=== PATIENT | male | born 1965 | race Two or more races ===

== ENCOUNTER → 2022-11-15 12:59 | Outpatient (BNVA) | payer MEDICARE, MEDICAID, SELFPAY | PROVIDERS: PCP Internal Medicine; Visit Provider Nurse Practitioner Family | DX: M47.26 Other spondylosis with radiculopathy, lumbar region (principal); M51.36 Other intervertebral disc degeneration, lumbar region; G89.0 Central pain syndrome; Z94.0 Kidney transplant status | CPT/HCPCS: 99212 ==

== ENCOUNTER → 2022-12-03 10:05 | Outpatient (BNVA) | payer MEDICARE, MEDICAID, SELFPAY | PROVIDERS: PCP Internal Medicine; Visit Provider Nurse Practitioner Family | DX: G89.0 Central pain syndrome (principal); M47.26 Other spondylosis with radiculopathy, lumbar region; M51.36 Other intervertebral disc degeneration, lumbar region; Z94.0 Kidney transplant status | CPT/HCPCS: Q3014 ==

== ENCOUNTER → 2023-02-06 08:51 | Outpatient (BNVA) | payer MEDICARE, MEDICAID, SELFPAY | PROVIDERS: PCP Internal Medicine; Visit Provider Nurse Practitioner Family ==

== ENCOUNTER → 2023-08-26 23:59 | Outpatient (BNV) | payer MEDICARE, MEDICAID, SELFPAY | PROVIDERS: PCP Internal Medicine; Visit Provider Internal Medicine | DX: I12.0 Hypertensive chronic kidney disease with stage 5 chronic kidney disease or end stage renal disease (principal); N18.6 End stage renal disease; Z09 Encounter for follow-up examination after completed treatment for conditions other than malignant neoplasm; R52 Pain, unspecified | CPT/HCPCS: G0179 ==

== ENCOUNTER 2023-09-02 12:39 | Outpatient (AMB) | payer MEDICARE, MEDICAID, SELFPAY ==
--- NOTE | 2023-09-02 12:48 | MHC.PC.OV ---
Vital Signs 09/02/23 12:49 Height 5 ft 3 in Weight 178 lb BMI 31.5 BP 124/76 Blood Pressure Location Lt brachial Position Sitting Pulse 75 Pulse Source Pulse Oximeter Pulse Oximetry (%) 99 Oxygen Delivery Method Room Air Intake Visit Reasons: 6 month Follow- needs PHQ9 Intake Note: Pt is here today for 6 months follow up visit. Allergies No Known Allergies [No Known Allergies*] Allergy (Verified 09/02/23 12:54) Tobacco use date assessed: 09/02/23 Dental Screening Dental Screen Date: 09/02/23 Did you have a dental visit in the last 12 months?: Yes Did you have a dental problem in the last 6 months where you did not have access to dental care?: No Was dental information given to patient?: Patient has dentist HPI 6 month Follow- needs PHQ9 HPI Details Patient is 58-year-old gentleman came in today for his regular 6 month follow-up appointment Patient is a kidney transplant recipient and is doing very well His nephrology is Dr. Fagan Patient is taking no medication from this office However I see that he has gained lot of weight, his BMI is now 31.5 We talked about the ideal body weight and BMI Patient have chronic lower back pain, and is doing very well with Lyrica 25 mg also prescribed through Nephrology office He will return in 6 months for physical exam [facility] Medical History Thalamic pain syndrome Lumbar degenerative disc disease Lumbar back pain with radiculopathy affecting left lower extremity Hypertension, essential Depression Chronic kidney failure Surgical History History of esophagogastroduodenoscopy (EGD) H/O colonoscopy Kidney transplant recipient History of right inguinal hernia repair History of strabismus surgery Status post biopsy of kidney Family History Father No problems noted. Mother No problems noted. Sister HTN (hypertension) CVD (cardiovascular disease) Myocardial infarction Cancer Maternal Grandmother Cancer Maternal Grandfather No problems noted. Paternal Grandfather Unknown family medical history Paternal Grandmother Unknown family medical history Sister No problems noted. Brother No problems noted. Brother Substance use disorder Son No problems noted. Daughter No problems noted. Social History Housing: Apartment Alcohol intake: never Patient Tobacco Use Status: Former Tobacco user Quit Date: 2020 Cigarettes Per Day: 3 Years Smoked: 12 years e-Cigarette/Vaping Use: Never Used Current occupational status: retired and disabled Cognitive needs: No Hearing needs: No Vision needs: No Questionnaire PHQ-9 Over the last 2 weeks, how often have you been bothered by any of the following problems? 1. Little interest or pleasure in doing things: several days 2. Feeling down, depressed, or hopeless: not at all 3. Trouble falling or staying asleep, or sleeping too much: more than half the days 4. Feeling tired or having little energy: more than half the days 5. Poor appetite or overeating: several days 6. Feeling bad about yourself - or that you are a failure or have let yourself or your family down: not at all 7. Trouble concentrating on things, such as reading the newspaper or watching television: not at all 8. Moving or speaking so slowly that other people could have noticed. Or the opposite - being so fidgety or restless that you have been moving around a lot more than usual: several days 9. Thoughts that you would be better off or of hurting yourself in some way: not at all Total score: 7 Depression Screening Interpretation: Negative Depression Screening Done: Yes 34852 - PHQ-9 Billing: Yes Source: Developed by Drs. Jean-Paul Amato, Phuong Mckeon, Rafy Connell and colleagues, with an educational bobby from [employer]. Thrive Questionnaire Date Thrive assessed: 09/02/23 I am a: Patient What is your living situation today?: I have a steady place to live Within the past 12 months, did the food you bought not last and you didn't have the money to get more?: Never true Within the past 12 months, did you worry whether your food would run out before you got money to buy more?: Never true Do you have trouble paying for medicines?: No Do you have trouble getting transportation to medical appointments?: No Do you have trouble paying your heating and electricity bill?: No Do you have trouble taking care of your child, family member or friend?: No Do you have trouble with day-to-day activities such as bathing, preparing meals, shopping, managing finances, etc.?: No Are you currently unemployed and looking for a job?: No Are you interested in more education?: No Please select the resources that you would like help with: None Currently or been in a relationship where the following occur: no concerns reported AUDIT C Alcohol Use Questionnaire (AUDIT-C) 1. How often do you have a drink containing alcohol?: Never 3. How often do you have six or more drinks on one occasion?: Never Total Score: 0 TEA-7 AMB Questionnaire TEA-7 Date TEA - 7 assessed: 09/02/23 Feeling nervous, anxious, or on edge: 0 = Not at all Not being able to stop or control worryin = Not at all Worrying too much about different things: 0 = Not at all Trouble relaxin = Not at all Being so restless that it is hard to sit still: 0 = Not at all Becoming easily annoyed or irritable: 0 = Not at all Feeling afraid as if something awful might happen: 0 = Not at all Total TEA-7 score (0-4 normal; 5-9 mild; 10-14 moderate; 15-21 severe): 0 Source: Developed by Drs. Jean-Paul Amato, Phuong Mckeon, Rafy Connell and colleagues, with an educational bobby from [employer]. Review of Systems Const Denies chills and Denies fever(s) ENT Denies epistaxis and Denies nasal discharge Card Denies chest pain Resp Denies chest congestion, Denies cough and Denies hemoptysis GI Denies diarrhea and Denies nausea Skin/Breast Denies rash Neuro Reports no additional complaints Psych Reports no additional complaints Endo Reports no additional complaints Physical exam (Primary Care) Vital Signs: Last Vital Signs Pulse 75 09/02/23 12:49 BP 124/76 09/02/23 12:49 Pulse Ox 99 09/02/23 12:49 Oxygen Delivery Method Room Air 09/02/23 12:49 BMI result Body Mass Index 31.5 Tobacco/Smoking Status: Tobacco use Status Tobacco use date assessed 09/02/23 09/02/23 12:58 Patient Tobacco Use Status Former Tobacco user 09/02/23 12:49 Tobacco use type 02/28/23 12:15 e-Cigarette/Vaping Use Never Used 09/02/23 12:49 PHQ-9: PHQ-9 Score PHQ-9: Total score 7 09/02/23 12:59 Depression Screening Interpretation: Negative Thrive Assessment: Date of Thrive Assessment Date Thrive assessed 09/02/23 09/02/23 12:59 Currently or been in a relationship where the following occur: no concerns reported Const General: cooperative, comfortable and no acute distress Orientation/consciousness: patient oriented x3 HENMT Head: Yes normocephalic Eyes General: appearance normal, both eyes and all related structures Neck Neck: Yes supple Resp Effort & Inspection: normal respiratory effort, no cough and no stridor Cardio Rhythm: regular rhythm Heart sounds: S1 normal heart sound present and S2 normal heart sound present Skin General skin exam: turgor normal Neuro General: patient oriented x3, tone normal and moves all extremities Extrem Right lower extremity: no edema Left lower extremity: no edema Assessment and Plan Assessment & Plan (1) Obesity due to excess calories: Code(s): E66.09 - Other obesity due to excess calories Qualifiers: Obesity classification: adult class 1 (BMI 30 - 34.9) Serious obesity comorbidity presence: with serious comorbidity Body mass index: BMI 31.0-31.9 Qualified Code(s): E66.09 - Other obesity due to excess calories; Z68.31 - Body mass index [BMI] 31.0-31.9, adult (2) Kidney transplant recipient: Code(s): Z94.0 - Kidney transplant status (3) Lumbar back pain with radiculopathy affecting left lower extremity: Code(s): M54.16 - Radiculopathy, lumbar region (4) Hypertension, essential: Code(s): I10 - Essential (primary) hypertension Plan Patient is 58-year-old gentleman came in today for his regular 6 month follow-up appointment Patient is a kidney transplant recipient and is doing very well His nephrology is Dr. Fagan Patient is taking no medication from this office However I see that he has gained lot of weight, his BMI is now 31.5 We talked about the ideal body weight and BMI Patient have chronic lower back pain, and is doing very well with Lyrica 25 mg also prescribed through Nephrology office He will return in 6 months for physical exam Coding Level of Care Code Est Pt Level 3 (84087) Diagnoses Class 1 obesity due to excess calories with serious comorbidity and body mass index (BMI) of 31.0 to 31.9 in adult E66.09; Z68.31 Obesity classification: adult class 1 (BMI 30 - 34.9) Serious obesity comorbidity presence: with serious comorbidity Body mass index: BMI 31.0-31.9 Kidney transplant recipient Z94.0 Lumbar back pain with radiculopathy affecting left lower extremity M54.16 Hypertension, essential I10
[2023-09-02 12:49] VITALS: BP 124/76; PULSE 75; O2SAT 99; BMI 31.5
== END 2023-09-02 16:00 | disposition home or self-care (01) ==
LOC: HO.HMGC 12:39
PROVIDERS: PCP Internal Medicine; Visit Provider Internal Medicine
DX: M54.16 Radiculopathy, lumbar region (principal); I10 Essential (primary) hypertension; E66.09 Other obesity due to excess calories; Z94.0 Kidney transplant status; Z68.31 Body mass index [BMI] 31.0-31.9, adult
CPT/HCPCS: 99213

== ENCOUNTER 2024-04-23 13:28 | Outpatient (AMB) | payer MEDICARE, MEDICAID, SELFPAY ==
--- NOTE | 2024-04-23 13:40 | A.OFFPC_ITS ---
Vital Signs 3 04/23/24 13:43 Height 5 ft 3 in Weight 160 lb BMI 28.3 BP 122/80 Blood Pressure Location Rt brachial Position Sitting Pulse 78 Pulse Source Pulse Oximeter Pulse Oximetry (%) 98 Oxygen Delivery Method Room Air Intake Visit Reasons: 6month Follow up Allergies No Known Allergies [No Known Allergies*] Allergy (Verified 04/23/24 13:43) Medication List - Last Reconciled 04/23/24 by Oumou Liriano MD amlodipine 10 mg PO DAILY atorvastatin 80 mg PO DAILY 90 days calcifediol ER (Rayaldee) 30 mcg PO DAILY cane As directed carvedilol 25 mg PO BID cinacalcet 30 mg PO DAILY docusate sodium 100 mg PO TID PRN ezetimibe 10 mg PO DAILY lisinopril 40 mg PO DAILY pregabalin 25 mg PO DAILY Shower Chair As directed sodium bicarbonate 650 mg PO BID tacrolimus XR (Envarsus XR) 1 mg PO DAILY torsemide 10 mg PO DAILY Tobacco use date assessed: 04/23/24 Dental Screening Dental Screen Date: 04/23/24 Did you have a dental visit in the last 12 months?: Yes Did you have a dental problem in the last 6 months where you did not have access to dental care?: No Was dental information given to patient?: Patient has dentist HPI 6month Follow up 2 HPI0 Details Patient is 58-year-old gentleman came in today for his six-month follow-up appointment Patient is due for colonoscopy, referral placed He is a kidney transplant recipient, and would like to transfer his care to [facility] He is also due for labs order placed He is taking atorvastatin for lipid control from this office Patient have a large shunt in his left arm that was placed for dialysis before the kidney transplant He will discuss with the Nephrology further because he want that removed, patient feels that it is getting bigger He is taking amlodipine 10 mg , lisinopril 40 mg and carvedilol 25 mg for hypertension. Other medications reviewed Only medication from PCP office is atorvastatin Follow-up 6 months [facility] Medical History Thalamic pain syndrome Lumbar degenerative disc disease Lumbar back pain with radiculopathy affecting left lower extremity Hypertension, essential Depression Chronic kidney failure Surgical History History of esophagogastroduodenoscopy (EGD) H/O colonoscopy Kidney transplant recipient History of right inguinal hernia repair History of strabismus surgery Status post biopsy of kidney Family History Father No problems noted. Mother No problems noted. Sister HTN (hypertension) CVD (cardiovascular disease) Myocardial infarction Cancer Maternal Grandmother Cancer Maternal Grandfather No problems noted. Paternal Grandfather Unknown family medical history Paternal Grandmother Unknown family medical history Sister No problems noted. Brother No problems noted. Brother Substance use disorder Son No problems noted. Daughter No problems noted. Social History Housing: Apartment Alcohol intake: never Patient Tobacco Use Status: Former Tobacco user Cigarettes Per Day: 3 Years Smoked: 12 years e-Cigarette/Vaping Use: Never Used Current occupational status: retired and disabled Cognitive needs: No Hearing needs: No Vision needs: No Questionnaire Thrive Questionnaire Date Thrive assessed: 09/02/23 TEA-7 AMB Questionnaire TEA-7 Date TEA - 7 assessed: 09/02/23 Source: Developed by Drs. Jean-Paul Amato, Phuong Mckeon, Rafy Connell and colleagues, with an educational bobby from [employer]. Review of Systems Const Denies chills and Denies fever(s) ENT Denies epistaxis and Denies nasal discharge Card Denies chest pain Resp Denies chest congestion, Denies cough and Denies hemoptysis GI Denies diarrhea and Denies nausea Skin/Breast Denies rash Neuro Reports no additional complaints Psych Reports no additional complaints Endo Reports no additional complaints Physical exam (Primary Care) Vital Signs: Last Vital Signs Pulse 78 04/23/24 13:43 BP 122/80 04/23/24 13:43 Pulse Ox 98 04/23/24 13:43 Oxygen Delivery Method Room Air 04/23/24 13:43 BMI result Body Mass Index 28.3 Tobacco/Smoking Status: Tobacco use Status Tobacco use date assessed 04/23/24 04/23/24 13:47 Patient Tobacco Use Status Former Tobacco user 04/23/24 13:40 Tobacco use type 02/28/23 12:15 e-Cigarette/Vaping Use Never Used 04/23/24 13:40 Thrive Assessment: Date of Thrive Assessment Date Thrive assessed 09/02/23 04/23/24 13:40 Const General: cooperative, comfortable and no acute distress Orientation/consciousness: patient oriented x3 [facility] Head: Yes normocephalic Eyes General: appearance normal, both eyes and all related structures Neck Neck: Yes supple Resp Effort & Inspection: normal respiratory effort, no cough and no stridor Cardio Rhythm: regular rhythm Heart sounds: S1 normal heart sound present and S2 normal heart sound present Skin General skin exam: turgor normal Neuro General: patient oriented x3, tone normal and moves all extremities Extrem Elbow/forearm/wrist images: 2 1. Large shunt Right lower extremity: no edema Left lower extremity: no edema Assessment and Plan Assessment & Plan (1) Lipid disorder: Code(s): E78.9 - Disorder of lipoprotein metabolism, unspecified (2) Hypertension, essential: Code(s): I10 - Essential (primary) hypertension (3) Lumbar degenerative disc disease: Code(s): M51.36 - Other intervertebral disc degeneration, lumbar region (4) Membranous glomerulonephritis: Code(s): N05.2 - Unspecified nephritic syndrome with diffuse membranous glomerulonephritis (5) Kidney transplant recipient: Code(s): Z94.0 - Kidney transplant status (6) Colon cancer screening: Code(s): Z12.11 - Encounter for screening for malignant neoplasm of colon (7) Lumbar spondylosis: Code(s): M47.816 - Spondylosis without myelopathy or radiculopathy, lumbar region Plan Patient is 58-year-old gentleman came in today for his six-month follow-up appointment Patient is due for colonoscopy, referral placed He is a kidney transplant recipient, and would like to transfer his care to [facility] He is also due for labs order placed He is taking atorvastatin for lipid control from this office Patient have a large shunt in his left arm that was placed for dialysis before the kidney transplant He will discuss with the Nephrology further because he want that removed, patient feels that it is getting bigger He is taking amlodipine 10 mg , lisinopril 40 mg and carvedilol 25 mg for hypertension. Other medications reviewed Only medication from PCP office is atorvastatin Follow-up 6 months Orders: Orders 2 Comprehensive Met. Panel Today E78.9 - Disorder of lipoprotein metabolism, unspecified TSH reflex Free T4 Today E78.9 - Disorder of lipoprotein metabolism, unspecified, I10 - Essential (primary) hypertension, M51.36 - Other intervertebral disc degeneration, lumbar region Vitamin D 25-OH (D2 and D3) Today E78.9 - Disorder of lipoprotein metabolism, unspecified, I10 - Essential (primary) hypertension, M51.36 - Other intervertebral disc degeneration, lumbar region Complete Blood Count Auto Diff Today E78.9 - Disorder of lipoprotein metabolism, unspecified, I10 - Essential (primary) hypertension, M51.36 - Other intervertebral disc degeneration, lumbar region LDL Cholesterol Direct Today E78.9 - Disorder of lipoprotein metabolism, unspecified, I10 - Essential (primary) hypertension, M51.36 - Other intervertebral disc degeneration, lumbar region Referrals 2 Gastroenterology Referral Z12.11 - Encounter for screening for malignant neoplasm of colon Nephrology Referral N05.2 - Unspecified nephritic syndrome with diffuse membranous glomerulonephritis, Z94.0 - Kidney transplant status Coding Level of Care Code Est Pt Level 4 (26106) Complex EM visit Add On G2211 Diagnoses Lipid disorder E78.9 Hypertension, essential I10 Lumbar degenerative disc disease M51.36 Membranous glomerulonephritis N05.2 Kidney transplant recipient Z94.0 Colon cancer screening Z12.11 Lumbar spondylosis M47.816
[2024-04-23 13:43] VITALS: BP 122/80; PULSE 78; O2SAT 98; BMI 28.3
== END 2024-04-23 14:07 | disposition home or self-care (01) ==
PROVIDERS: PCP Internal Medicine; Visit Provider Internal Medicine
DX: E78.9 Disorder of lipoprotein metabolism, unspecified (principal); I10 Essential (primary) hypertension; M51.36 Other intervertebral disc degeneration, lumbar region; N05.2 Unspecified nephritic syndrome with diffuse membranous glomerulonephritis; Z12.11 Encounter for screening for malignant neoplasm of colon; M47.816 Spondylosis without myelopathy or radiculopathy, lumbar region; Z94.0 Kidney transplant status
CPT/HCPCS: 99214; G2211

== ENCOUNTER 2024-04-23 14:12 | Outpatient (REF) | payer MEDICARE, MEDICAID, SELFPAY ==
[2024-04-23 16:08] LABS: MANUAL DIFF FLAG NO
[2024-04-23 16:12] LABS: Basophils Absolute Auto 0.1 X10*3/uL (0.0-0.2); Basophils Percent Auto 0.6 % (0-2); Eosinophils Absolute Auto 0.3 X10*3/uL (0.0-0.4); Eosinophils Percent Auto 2.8 % (0-4); Hematocrit 41.3 % (42.0-52.0); Hemoglobin 13.6 g/dl (14.0-18.0); Imm Gran Abs Auto 0.03 X10*3/uL (0.00-0.03); Imm Gran Pct Auto 0.3 % (0.0-0.4); Lymphocytes Percent Auto 10.8 % (20-40); Mean Corpuscular HGB Conc 32.9 g/dl (31.0-36.0); Mean Corpuscular Volume 91.2 fL (80.0-98.0); Mean Platelet Volume 11.3 fL (9.4-12.4); Monocytes Absolute Auto 1.1 X10*3/uL (0.1-1.2); Monocytes Percent Auto 12.7 % (2-11); Neutrophils Absolute Auto 6.6 x10*3/uL (2.0-8.3); Neutrophils Percent Auto 72.8 % (45-73); Platelet Count 247 X10*3/uL (160-400); Red Blood Count 4.53 X10*6/uL (4.60-5.80)
[2024-04-23 16:45] LABS: Alanine Aminotransferase 25 U/L (0-40); Albumin Level 4.4 g/dL (3.5-5.0); Alkaline Phosphatase 105 U/L (39-117); Anion Gap 13 (12-20); Aspartate Amino Transferase 21 U/L (5-37); Bilirubin Total 0.5 mg/dL (0.0-1.0); Blood Urea Nitrogen 31 mg/dL (9-16); Calcium 9.8 mg/dL (8.4-10.2); Carbon Dioxide 21 mmol/L (22-29); Chloride 114 mmol/L (96-108); Estimated Glomerular Filt Rate 46; Glucose Random 113 mg/dL (60-115); Potassium 5.4 mmol/L (3.3-5.1); Sodium 143 mmol/L (135-145); Total Protein 7.7 g/dL (6.5-8.0)
[2024-04-23 17:03] LABS: TSH reflex Free T4 0.95 uIU/mL (0.32-4.0)
[2024-04-25 00:18] LABS: LDL Cholesterol Direct 37 mg/dL (<100)
[2024-04-28 11:58] LABS: Vitamin D 25-OH, D2 70 ng/mL; Vitamin D 25-OH, D3 19 ng/mL; Vitamin D 25-OH, Total 89 ng/mL (30-100)
== END 2024-04-23 14:13 | disposition home or self-care (01) ==
LOC: HO.HMGCLDS 14:12
PROVIDERS: PCP Internal Medicine; Visit Provider Internal Medicine
DX: E78.9 Disorder of lipoprotein metabolism, unspecified (principal); I10 Essential (primary) hypertension; M51.36 Other intervertebral disc degeneration, lumbar region
CPT/HCPCS: 36415; 80053; 82306; 83721; 84443; 85025

== ENCOUNTER 2024-05-19 09:55 | Outpatient (AMB) | payer MEDICARE, MEDICAID, SELFPAY ==
[2024-05-19 09:59] VITALS: BP 124/68; PULSE 63; O2SAT 97; BMI 28.9
--- NOTE | 2024-05-19 09:59 | HO.NEPHOV_ITS ---
Vital Signs 05/19/24 09:59 Height 5 ft 3 in Weight 163 lb BMI 28.9 BP 124/68 Blood Pressure Location Lt brachial Position Sitting Pulse 63 Pulse Source Pulse Oximeter Pulse Oximetry (%) 97 Oxygen Delivery Method Room Air Intake Visit Reasons: Kidney transplant status/ Conf Church Organist Required: No Accompanied by: Self / Same As Patient Allergies lactose Allergy (Unknown, Verified 05/19/24 10:03) Unknown Medication List - Last Reconciled 05/19/24 by Jason Goldstein MD acetaminophen 500 mg PO Q6H PRN amlodipine 10 mg PO DAILY cane As directed carvedilol 25 mg PO BID empagliflozin (Jardiance) 10 mg PO DAILY lisinopril 40 mg PO DAILY Shower Chair As directed tacrolimus XR (Envarsus XR) 1 mg PO DAILY tacrolimus XR (Envarsus XR) 2 mg PO DAILY HPI Comments Details: . Rodney is well known to me. 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 He underwent kidney transplant 2 years ago. Date of transplant 06/06/2021. 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 Current modality renal transplant Campath induction Maintenance with tacrolimus. Patient creatinine 1.5. No history of rejection. He was previously seen by Dr. Fagan for transplant follow-up. Since her exit from [facility] he wants to switch care to us. He is concerned about taking multiple medications. Today he has no specific complaints. [facility] Medical History Thalamic pain syndrome Lumbar degenerative disc disease Lumbar back pain with radiculopathy affecting left lower extremity Hypertension, essential Depression Chronic kidney failure Surgical History History of esophagogastroduodenoscopy (EGD) H/O colonoscopy Kidney transplant recipient History of right inguinal hernia repair History of strabismus surgery Status post biopsy of kidney Family History Father No problems noted. Mother No problems noted. Sister HTN (hypertension) CVD (cardiovascular disease) Myocardial infarction Cancer Maternal Grandmother Cancer Maternal Grandfather No problems noted. Paternal Grandfather Unknown family medical history Paternal Grandmother Unknown family medical history Sister No problems noted. Brother No problems noted. Brother Substance use disorder Son No problems noted. Daughter No problems noted. Social History Housing: Apartment Alcohol intake: never Patient Tobacco Use Status: Former Tobacco user Cigarettes Per Day: 3 Years Smoked: 12 years e-Cigarette/Vaping Use: Never Used Current occupational status: retired and disabled Cognitive needs: No Hearing needs: No Vision needs: No Review of Systems Const Denies fever(s) and Denies weight loss Card Denies chest pain Resp Denies cough and Denies hemoptysis GI Denies abdominal pain, Denies diarrhea and Denies nausea Musc Denies back pain Neuro Denies focal weakness Physical Exam Vital Signs: Last Vital Signs Pulse 63 05/19/24 09:59 BP 124/68 05/19/24 09:59 Pulse Ox 97 05/19/24 09:59 Oxygen Delivery Method Room Air 05/19/24 09:59 BMI result Body Mass Index 28.9 Const General: comfortable; No acute distress Orientation/consciousness: patient oriented x3 Eyes General: appearance normal, both eyes and all related structures Visual [place]: normal visual redding by confrontation Neck Neck: Yes supple and Yes no JVD Resp Effort & Inspection: normal respiratory effort and respiratory effort not decreased Auscultation: rhonchi Cardio Palpation: no palpable S3 and no palpable S4 Heart sounds: no rubs GI Inspection: Yes normal to inspection Palpation (GI): Soft to palpation Percussion: Yes normal to percussion Auscultation: normal bowel sounds General: Yes no CVA tenderness Back/Spine/Pelvis Back: no CVA tenderness Skin General skin exam: no petechiae and no purpura Neuro General: patient oriented x3 and no focal motor deficits Extrem Other: 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 Induction with Campath Maintain with tacrolimus. Baseline creatinine 1.5. Code(s): Z94.0 - Kidney transplant status Category: Surgical Plan: At present renal function stable. Continue to monitor renal function. Check tacrolimus levels. Optimize blood pressure Keep on SGLT2 inhibitors. (2) Hypertension, essential: Code(s): I10 - Essential (primary) hypertension Category: Medical Plan: Blood pressure is better controlled Continue with current regimen Stay on low-sodium diet Monitor blood pressure closely. Plan He has had mild hyperkalemia with metabolic acidosis. He is on sodium bicarbonate 650 mg t.i.d. along with Lokelma 10 g b.i.d.. I will stop both his medications recheck electrolyte panel and adjust dose accordingly. Dyslipidemia He is on atorvastatin 80 mg along with the Zetia. No recent cholesterol levels are available Check levels and restart statins as needed. Monitor for secondary hyperparathyroidism. Hold cinacalcet and Rayaldee until lab results are available Orders: Orders UA and rflx microscopic Today N05.2 - Unspecified nephritic syndrome with diffuse membranous glomerulonephritis Comprehensive Met. Panel 4 Weeks I10 - Essential (primary) hypertension, N05.2 - Unspecified nephritic syndrome with diffuse membranous glomerulonephritis Phosphorus 4 Weeks I10 - Essential (primary) hypertension, N05.2 - Unspecified nephritic syndrome with diffuse membranous glomerulonephritis Lipid Panel 4 Weeks I10 - Essential (primary) hypertension, N05.2 - Unspecified nephritic syndrome with diffuse membranous glomerulonephritis Complete Blood Count Auto Diff 4 Weeks I10 - Essential (primary) hypertension, N05.2 - Unspecified nephritic syndrome with diffuse membranous glomerulonephritis Basic Metabolic Panel Today N05.2 - Unspecified nephritic syndrome with diffuse membranous glomerulonephritis Total Protein Urine Random Today N05.2 - Unspecified nephritic syndrome with diffuse membranous glomerulonephritis Creatinine Urine Today N05.2 - Unspecified nephritic syndrome with diffuse membranous glomerulonephritis Parathyroid Hormone Intact 4 Weeks I10 - Essential (primary) hypertension, N05.2 - Unspecified nephritic syndrome with diffuse membranous glomerulonephritis Vitamin D 25-OH (D2 and D3) 4 Weeks I10 - Essential (primary) hypertension, N05.2 - Unspecified nephritic syndrome with diffuse membranous glomerulonephritis Coding Level of Care Code Est Pt Level 5 (39464) Diagnoses Renal transplant, status post Z94.0 Hypertension, essential I10
== END 2024-05-19 10:36 | disposition home or self-care (01) ==
PROVIDERS: PCP Internal Medicine; Referring Provider Internal Medicine; Visit Provider Internal Medicine Hypertension Specialist
DX: Z94.0 Kidney transplant status (principal); I10 Essential (primary) hypertension
CPT/HCPCS: 99214

== ENCOUNTER → 2024-05-19 09:55 | Outpatient (BNVA) | payer MEDICARE, MEDICAID, SELFPAY | PROVIDERS: PCP Internal Medicine; Referring Provider Internal Medicine; Visit Provider Internal Medicine Hypertension Specialist | DX: I10 Essential (primary) hypertension (principal); N05.2 Unspecified nephritic syndrome with diffuse membranous glomerulonephritis; Z94.0 Kidney transplant status | CPT/HCPCS: 36415; 80048; 81001; 82570; 84156; 99212 ==

== ENCOUNTER 2024-05-19 10:54 | Outpatient (REF) | payer MEDICARE, MEDICAID, SELFPAY ==
[2024-05-19 18:14] LABS: Appearance Urine Clear; Color Urine Yellow; Glucose Urine UA 500 mg/dL (Negative); Leukocyte Esterase Urine Negative (Negative); Nitrite Urine Negative (Negative); PH 5.5 (5.0-9.0); Specific Gravity - Urine 1.015 (1.005-1.025); UMIC TRIGGER UA YES; Urine Blood Negative (Negative); Urine Ketones Negative (Negative); Urine Protein 30 (1+) mg/dL (Neg-Trace)
[2024-05-19 18:33] LABS: Bacteria Urine None Seen (None Seen); Hyaline Casts Urine 0-2 /LPF (0-2); RBC Urine 0-2 /HPF (0-2); Squamous Epithelial Cell Urine 0-2 /HPF (0-2); WBC Urine 0-5 /HPF (0-5)
[2024-05-19 18:55] LABS: Anion Gap 15 (12-20); Blood Urea Nitrogen 41 mg/dL (9-16); Calcium 9.5 mg/dL (8.4-10.2); Carbon Dioxide 19 mmol/L (22-29); Chloride 114 mmol/L (96-108); Estimated Glomerular Filt Rate 45; Glucose Random 97 mg/dL (60-115); Potassium 5.5 mmol/L (3.3-5.1); Sodium 142 mmol/L (135-145)
[2024-05-19 19:10] LABS: Creatinine Urine 105.93 mg/dL; Total Protein Urine Random 27 mg/dL (<12)
== END 2024-05-19 10:55 | disposition home or self-care (01) ==
LOC: HO.HKASLDS 10:54
PROVIDERS: Visit Provider Internal Medicine Hypertension Specialist
DX: Z13.89 Encounter for screening for other disorder (principal)
CPT/HCPCS: 36415; 80048; 81001; 82570; 84156

== ENCOUNTER 2024-06-15 10:38 | Outpatient (REF) | payer MEDICARE, MEDICAID, SELFPAY ==
[2024-06-15 18:00] LABS: MANUAL DIFF FLAG NO
[2024-06-15 18:04] LABS: Basophils Absolute Auto 0.1 X10*3/uL (0.0-0.2); Basophils Percent Auto 0.8 % (0-2); Eosinophils Absolute Auto 0.2 X10*3/uL (0.0-0.4); Eosinophils Percent Auto 2.7 % (0-4); Hematocrit 37.2 % (42.0-52.0); Hemoglobin 12.6 g/dl (14.0-18.0); Imm Gran Abs Auto 0.02 X10*3/uL (0.00-0.03); Imm Gran Pct Auto 0.3 % (0.0-0.4); Lymphocytes Absolute Auto 1.1 X10*3/uL (1.2-4.9); Lymphocytes Percent Auto 13.6 % (20-40); Mean Corpuscular HGB Conc 33.9 g/dl (31.0-36.0); Mean Corpuscular Hemoglobin 30.5 pg (27.0-33.0); Mean Corpuscular Volume 90.1 fL (80.0-98.0); Mean Platelet Volume 11.3 fL (9.4-12.4); Monocytes Absolute Auto 1.1 X10*3/uL (0.1-1.2); Monocytes Percent Auto 13.8 % (2-11); Neutrophils Absolute Auto 5.4 x10*3/uL (2.0-8.3); Neutrophils Percent Auto 68.8 % (45-73); Platelet Count 221 X10*3/uL (160-400); Red Blood Count 4.13 X10*6/uL (4.60-5.80); White Blood Count 7.9 X10*3/uL (4.8-10.8)
[2024-06-15 18:09] LABS: Appearance Urine Clear; Color Urine Yellow; Glucose Urine UA 500 mg/dL (Negative); Leukocyte Esterase Urine Trace (Negative); Nitrite Urine Negative (Negative); PH 6.5 (5.0-9.0); Specific Gravity - Urine 1.015 (1.005-1.025); UMIC TRIGGER UA YES; Urine Blood Negative (Negative); Urine Ketones Negative (Negative); Urine Protein 30 (1+) mg/dL (Neg-Trace)
[2024-06-15 18:15] LABS: Bacteria Urine None Seen (None Seen); Hyaline Casts Urine 0-2 /LPF (0-2); RBC Urine 0-2 /HPF (0-2); Squamous Epithelial Cell Urine 0-2 /HPF (0-2); WBC Urine 0-5 /HPF (0-5)
[2024-06-15 18:18] LABS: Alanine Aminotransferase 24 U/L (0-40); Albumin Level 3.9 g/dL (3.5-5.0); Alkaline Phosphatase 86 U/L (39-117); Anion Gap 13 (12-20); Aspartate Amino Transferase 14 U/L (5-37); Bilirubin Total 0.3 mg/dL (0.0-1.0); Blood Urea Nitrogen 40 mg/dL (9-16); Calcium 9.8 mg/dL (8.4-10.2); Carbon Dioxide 18 mmol/L (22-29); Chloride 116 mmol/L (96-108); Cholesterol 87 mg/dL (<200); Estimated Glomerular Filt Rate 44; Glucose Random 115 mg/dL (60-115); HDL Cholesterol 30 mg/dL (>40); LDL Cholesterol Calculated 22 mg/dL (<100); Phosphorus 3.3 mg/dL (2.7-4.5); Potassium 5.6 mmol/L (3.3-5.1); Sodium 141 mmol/L (135-145); Total Protein 6.8 g/dL (6.5-8.0); Triglycerides 176 mg/dL (<150)
[2024-06-16 06:06] LABS: Parathyroid Hormone Intact 167.7 pg/mL (8.7-77.1)
[2024-06-20 14:43] LABS: Vitamin D 25-OH, D2 41 ng/mL; Vitamin D 25-OH, D3 19 ng/mL; Vitamin D 25-OH, Total 60 ng/mL (30-100)
== END 2024-06-15 10:39 | disposition home or self-care (01) ==
LOC: HO.HKASLDS 10:38
PROVIDERS: Visit Provider Internal Medicine Hypertension Specialist
DX: N05.2 Unspecified nephritic syndrome with diffuse membranous glomerulonephritis (principal); I10 Essential (primary) hypertension
CPT/HCPCS: 36415; 80053; 80061; 81001; 82306; 83970; 84100; 85025

== ENCOUNTER 2024-06-16 08:20 | Outpatient (AMB) | payer MEDICARE, MEDICAID, SELFPAY ==
[2024-06-16 08:33] VITALS: BP 114/64; PULSE 66; O2SAT 96; BMI 29.4
--- NOTE | 2024-06-16 08:33 | HO.NEPHOV ---
Vital Signs 06/16/24 08:33 Height 5 ft 3 in Weight 166 lb BMI 29.4 BP 114/64 Blood Pressure Location Lt brachial Position Sitting Pulse 66 Pulse Source Pulse Oximeter Pulse Oximetry (%) 96 Oxygen Delivery Method Room Air Intake Visit Reasons: 4 wks follow up/ LVM Drafting Engineer Required: No Allergies lactose Allergy (Unknown, Verified 06/16/24 08:35) Unknown Medication List - Last Reconciled 06/16/24 by Jason Goldstein MD acetaminophen 500 mg PO Q6H PRN amlodipine 10 mg PO DAILY cane As directed carvedilol 25 mg PO BID empagliflozin (Jardiance) 10 mg PO DAILY lisinopril 40 mg PO DAILY Shower Chair As directed tacrolimus XR (Envarsus XR) 1 mg PO DAILY tacrolimus XR (Envarsus XR) 2 mg PO DAILY HPI Comments Details: . Rodney is well known to me. 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 He underwent kidney transplant 2 years ago. Date of transplant 06/06/2021. 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 Current modality renal transplant Campath induction Maintenance with tacrolimus. Patient creatinine 1.5. No history of rejection. He was previously seen by Dr. Fagan for transplant follow-up. [facility] her [facility] he wants to switch care to us. He is concerned about taking multiple medications. Today he has no specific complaints. 06/16/24 No new issues today [facility] Medical History Thalamic pain syndrome Lumbar degenerative disc disease Lumbar back pain with radiculopathy affecting left lower extremity Hypertension, essential Depression Chronic kidney failure Surgical History History of esophagogastroduodenoscopy (EGD) H/O colonoscopy Kidney transplant recipient History of right inguinal hernia repair History of strabismus surgery Status post biopsy of kidney Family History Father No problems noted. Mother No problems noted. Sister HTN (hypertension) CVD (cardiovascular disease) Myocardial infarction Cancer Maternal Grandmother Cancer Maternal Grandfather No problems noted. Paternal Grandfather Unknown family medical history Paternal Grandmother Unknown family medical history Sister No problems noted. Brother No problems noted. Brother Substance use disorder Son No problems noted. Daughter No problems noted. Social History Housing: Apartment Alcohol intake: never Patient Tobacco Use Status: Former Tobacco user Cigarettes Per Day: 3 Years Smoked: 12 years e-Cigarette/Vaping Use: Never Used Current occupational status: retired and disabled Cognitive needs: No Hearing needs: No Vision needs: No Physical Exam Vital Signs: Last Vital Signs Pulse 66 06/16/24 08:33 BP 114/64 06/16/24 08:33 Pulse Ox 96 06/16/24 08:33 Oxygen Delivery Method Room Air 06/16/24 08:33 BMI result Body Mass Index 29.4 Const General: comfortable; No acute distress Orientation/consciousness: patient oriented x3 Eyes General: appearance normal, both eyes and all related structures Visual Redding: normal visual redding by confrontation Neck Neck: Yes supple and Yes no JVD Resp Effort & Inspection: normal respiratory effort and respiratory effort not decreased Auscultation: rhonchi Cardio Palpation: no palpable S3 and no palpable S4 Heart sounds: no rubs GI Inspection: Yes normal to inspection Palpation (GI): Soft to palpation Percussion: Yes normal to percussion Auscultation: normal bowel sounds General: Yes no CVA tenderness Back/Spine/Pelvis Back: no CVA tenderness Skin General skin exam: no petechiae and no purpura Neuro General: patient oriented x3 and no focal motor deficits Extrem General: No clubbing and No edema Results Reviewed Nephrology Results: Hgb 12.6 g/dl (14.0-18.0) L 06/15/24 WBC 7.9 X10*3/uL (4.8-10.8) 06/15/24 Plt Count 221 X10*3/uL (160-400) 06/15/24 Sodium 141 mmol/L (135-145) 06/15/24 Potassium 5.6 mmol/L (3.3-5.1) H 06/15/24 Chloride 116 mmol/L (96-108) H 06/15/24 Carbon Dioxide 18 mmol/L (22-29) L 06/15/24 BUN 40 mg/dL (9-16) H 06/15/24 Creatinine 1.60 mg/dL (0.5-1.4) H 06/15/24 Calcium 9.8 mg/dL (8.4-10.2) 06/15/24 Phosphorus 3.3 mg/dL (2.7-4.5) 06/15/24 PTH Intact 167.7 pg/mL (8.7-77.1) H 06/15/24 Urine Protein 30 (1+) mg/dL (Neg-Trace) H 06/15/24 Urine Creatinine 105.93 mg/dL 05/19/24 Assessment & Plan Assessment & Plan (1) Renal transplant, status post: Comment: Transplant date 06/06/2021. Induction with Campath Maintain with tacrolimus. Baseline creatinine 1.5. Code(s): Z94.0 - Kidney transplant status Category: Surgical Plan: At present renal function stable. Continue to monitor renal function. Follow tacrolimus levels. Optimize blood pressure Keep on SGLT2 inhibitors. (2) Hypertension, essential: Code(s): I10 - Essential (primary) hypertension Category: Medical Plan: Blood pressure is better controlled Continue with current regimen Stay on low-sodium diet Monitor blood pressure closely. Plan He has had mild hyperkalemia with metabolic acidosis. Increase sodium bicarbonate 1300 mg BID Keep Lokelma 10 gm daily Dyslipidemia He is on atorvastatin 80 mg along with the Zetia. Was held last month Based on repeat labs, i will restart at 10 mg daily Monitor for secondary hyperparathyroidism. Hold cinacalcet and Rayaldee for now Recheck Ca/PTH Orders: Orders Basic Metabolic Panel 2 Months Z94.0 - Kidney transplant status Tacrolimus Prograf 2 Months Z94.0 - Kidney transplant status Complete Blood Count Auto Diff 2 Months Z94.0 - Kidney transplant status Parathyroid Hormone Intact 2 Months Z94.0 - Kidney transplant status Medications: New sodium bicarbonate 1,300 mg (2 x 650 mg) PO BID 360 tabs 3RF sodium zirconium cyclosilicate (Lokelma) 10 grams PO DAILY 30 ea 6RF atorvastatin 10 mg PO DAILY 30 tabs 6RF Coding Level of Care Code Est Pt Level 4 (28736) Diagnoses Renal transplant, status post Z94.0 Hypertension, essential I10
== END 2024-06-16 09:02 | disposition home or self-care (01) ==
PROVIDERS: PCP Internal Medicine; Visit Provider Internal Medicine Hypertension Specialist
DX: Z94.0 Kidney transplant status (principal); I10 Essential (primary) hypertension
CPT/HCPCS: 99214

== ENCOUNTER → 2024-06-16 08:20 | Outpatient (BNVA) | payer MEDICARE, MEDICAID, SELFPAY | PROVIDERS: PCP Internal Medicine; Visit Provider Internal Medicine Hypertension Specialist | DX: I10 Essential (primary) hypertension (principal); Z94.0 Kidney transplant status | CPT/HCPCS: 99212 ==

== ENCOUNTER 2024-07-14 09:39 | Outpatient (AMB) | payer MEDICARE, MEDICAID, SELFPAY ==
--- NOTE | 2024-07-14 10:00 | HO.NEPHOV_ITS ---
Vital Signs 07/14/24 10:02 Height 5 ft 3 in Weight 160 lb BMI 28.3 BP 122/64 Blood Pressure Location Rt brachial Position Sitting Pulse 64 Pulse Source Pulse Oximeter Pulse Oximetry (%) 98 Oxygen Delivery Method Room Air Intake Visit Reasons: Pt was seen at [facility] on 07/11/24 Commercial Litigation Paralegal Required: No Accompanied by: Self / Same As Patient Allergies lactose Allergy (Unknown, Verified 07/14/24 10:05) Unknown Medication List - Last Reconciled 07/14/24 by Jason Goldstein MD acetaminophen 500 mg PO Q6H PRN amlodipine 10 mg PO DAILY atorvastatin 10 mg PO DAILY cane As directed carvedilol 25 mg PO BID empagliflozin (Jardiance) 10 mg PO DAILY lisinopril 40 mg PO DAILY Shower Chair As directed sodium bicarbonate 1,300 mg (2 x 650 mg) PO BID sodium zirconium cyclosilicate (Lokelma) 10 grams PO DAILY tacrolimus XR (Envarsus XR) 1 mg PO DAILY tacrolimus XR (Envarsus XR) 2 mg PO DAILY HPI Comments Details: . Rodney is well known to me. 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 He underwent kidney transplant 2 years ago. Date of transplant 06/06/2021. 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 Current modality renal transplant Campath induction Maintenance with tacrolimus. Patient creatinine 1.5. No history of rejection. He was previously seen by Dr. Fagan for transplant follow-up. Since her exit from [facility] he wants to switch care to us. He is concerned about taking multiple medications. Today he has no specific complaints. 06/16/24;No new issues today 07/14/2024. Recently he was in emergency room because of pain in the AV fistula. Ultrasound was done and there was no clots. No evidence of infection. He has been referred to the vascular surgeon. [facility] Medical History Thalamic pain syndrome Lumbar degenerative disc disease Lumbar back pain with radiculopathy affecting left lower extremity Hypertension, essential Depression Chronic kidney failure Surgical History History of esophagogastroduodenoscopy (EGD) H/O colonoscopy Kidney transplant recipient History of right inguinal hernia repair History of strabismus surgery Status post biopsy of kidney Family History Father No problems noted. Mother No problems noted. Sister HTN (hypertension) CVD (cardiovascular disease) Myocardial infarction Cancer Maternal Grandmother Cancer Maternal Grandfather No problems noted. Paternal Grandfather Unknown family medical history Paternal Grandmother Unknown family medical history Sister No problems noted. Brother No problems noted. Brother Substance use disorder Son No problems noted. Daughter No problems noted. Social History Housing: Apartment Alcohol intake: never Patient Tobacco Use Status: Former Tobacco user Cigarettes Per Day: 3 Years Smoked: 12 years e-Cigarette/Vaping Use: Never Used Current occupational status: retired and disabled Cognitive needs: No Hearing needs: No Vision needs: No Physical Exam Vital Signs: Last Vital Signs Pulse 64 07/14/24 10:02 BP 122/64 07/14/24 10:02 Pulse Ox 98 07/14/24 10:02 Oxygen Delivery Method Room Air 07/14/24 10:02 BMI result Body Mass Index 28.3 Extrem Other: AV fistula has few tender spots but no erythema or warmth. Aneurysmal dilatation present Results Reviewed Nephrology Results: Hgb 12.6 g/dl (14.0-18.0) L 06/15/24 WBC 7.9 X10*3/uL (4.8-10.8) 06/15/24 Plt Count 221 X10*3/uL (160-400) 06/15/24 Sodium 141 mmol/L (135-145) 06/15/24 Potassium 5.6 mmol/L (3.3-5.1) H 06/15/24 Chloride 116 mmol/L (96-108) H 06/15/24 Carbon Dioxide 18 mmol/L (22-29) L 06/15/24 BUN 40 mg/dL (9-16) H 06/15/24 Creatinine 1.60 mg/dL (0.5-1.4) H 06/15/24 Calcium 9.8 mg/dL (8.4-10.2) 06/15/24 Phosphorus 3.3 mg/dL (2.7-4.5) 06/15/24 PTH Intact 167.7 pg/mL (8.7-77.1) H 06/15/24 Urine Protein 30 (1+) mg/dL (Neg-Trace) H 06/15/24 Urine Creatinine 105.93 mg/dL 05/19/24 Assessment & Plan Assessment & Plan (1) Hypertension, essential: Code(s): I10 - Essential (primary) hypertension Category: Medical Plan: Blood pressure is better controlled Continue with current regimen Stay on low-sodium diet Monitor blood pressure closely. 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 We will refer to surgery for evaluation Plan He has had mild hyperkalemia with metabolic acidosis. Increased sodium bicarbonate 1300 mg BID Keep Lokelma 10 gm daily Dyslipidemia He is on atorvastatin 80 mg along with the Zetia. Was held last month Based on repeat labs, i will restart at 10 mg daily Monitor for secondary hyperparathyroidism. Hold cinacalcet and Rayaldee for now Recheck Ca/PTH Orders: Referrals Transplant Surgery Referral T82.898A - Other specified complication of vascular prosthetic devices, implants and grafts, initial encounter Coding Level of Care Code Est Pt Level 4 (34678) Diagnoses Hypertension, essential I10 Hemodialysis AV fistula aneurysm T82.898A
[2024-07-14 10:02] VITALS: BP 122/64; PULSE 64; O2SAT 98; BMI 28.3
== END 2024-07-14 10:25 | disposition home or self-care (01) ==
PROVIDERS: PCP Internal Medicine; Visit Provider Internal Medicine Hypertension Specialist
DX: I10 Essential (primary) hypertension (principal); T82.898A Other specified complication of vascular prosthetic devices, implants and grafts, initial encounter; Z94.0 Kidney transplant status
CPT/HCPCS: 99214

== ENCOUNTER → 2024-07-14 09:39 | Outpatient (BNVA) | payer MEDICARE, MEDICAID, SELFPAY | PROVIDERS: PCP Internal Medicine; Visit Provider Internal Medicine Hypertension Specialist | DX: T82.898A Other specified complication of vascular prosthetic devices, implants and grafts, initial encounter (principal); I10 Essential (primary) hypertension | CPT/HCPCS: 99212 ==

== ENCOUNTER 2024-09-15 10:27 | Outpatient (AMB) | payer MEDICARE, MEDICAID, SELFPAY ==
[2024-09-15 11:05] VITALS: BP 126/64; PULSE 68; O2SAT 98; BMI 28.3
--- NOTE | 2024-09-15 11:05 | HO.NEPHOV_ITS ---
Vital Signs 09/15/24 11:05 Height 5 ft 3 in Weight 160 lb BMI 28.3 BP 126/64 Blood Pressure Location Rt brachial Position Sitting Pulse 68 Pulse Source Pulse Oximeter Pulse Oximetry (%) 98 Oxygen Delivery Method Room Air Intake Visit Reasons: RSC 08/18 appt/ Conf Area Manager Required: No Accompanied by: Self / Same As Patient Allergies lactose Allergy (Unknown, Verified 09/15/24 11:07) Unknown Medication List - Last Reconciled 09/15/24 by Jason Goldstein MD acetaminophen 500 mg PO Q6H PRN amlodipine 10 mg PO DAILY atorvastatin 10 mg PO DAILY cane As directed carvedilol 25 mg PO BID empagliflozin (Jardiance) 10 mg PO DAILY lisinopril 40 mg PO DAILY omeprazole 10 mg PO DAILY PRN Shower Chair As directed sodium bicarbonate 1,300 mg (2 x 650 mg) PO BID sodium zirconium cyclosilicate (Lokelma) 10 grams PO DAILY tacrolimus XR (Envarsus XR) 1 mg PO DAILY tacrolimus XR (Envarsus XR) 2 mg PO DAILY HPI Comments Details: . Rodney is well known to me. 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 He underwent kidney transplant 2 years ago. Date of transplant 06/06/2021. 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 Current modality renal transplant Campath induction Maintenance with tacrolimus. Patient creatinine 1.5. No history of rejection. He was previously seen by Dr. Fagan for transplant follow-up. Since her exit from [facility] he wants to switch care to us. He is concerned about taking multiple medications. Today he has no specific complaints. 06/16/24;No new issues today 07/14/2024. Recently he was in emergency room because of pain in the AV fistula. Ultrasound was done and there was no clots. No evidence of infection. He has been referred to the vascular surgeon. 09/15/24 Had diarrhea last month Resolved. 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 Mother No problems noted. Sister HTN (hypertension) CVD (cardiovascular disease) Myocardial infarction Cancer Maternal Grandmother Cancer Maternal Grandfather No problems noted. Paternal Grandfather Unknown family medical history Paternal Grandmother Unknown family medical history Sister No problems noted. Brother No problems noted. Brother Substance use disorder Son No problems noted. Daughter No problems noted. Social History Housing: Apartment Alcohol intake: never Patient Tobacco Use Status: Former Tobacco user Cigarettes Per Day: 3 Years Smoked: 12 years e-Cigarette/Vaping Use: Never Used Current occupational status: retired and disabled Cognitive needs: No Hearing needs: No Vision needs: No Physical Exam Vital Signs: Last Vital Signs Pulse 68 09/15/24 11:05 BP 126/64 09/15/24 11:05 Pulse Ox 98 09/15/24 11:05 Oxygen Delivery Method Room Air 09/15/24 11:05 BMI result Body Mass Index 28.3 Const General: comfortable; No acute distress Orientation/consciousness: patient oriented x3 Eyes General: appearance normal, both eyes and all related structures Visual Redding: normal visual redding by confrontation Neck Neck: Yes supple and Yes no JVD Resp Effort & Inspection: normal respiratory effort and respiratory effort not decreased Auscultation: rhonchi Cardio Palpation: no palpable S3 and no palpable S4 Heart sounds: no rubs GI Inspection: Yes normal to inspection Palpation (GI): Soft to palpation Percussion: Yes normal to percussion Auscultation: normal bowel sounds General: Yes no CVA tenderness Back/Spine/Pelvis Back: no CVA tenderness Skin General skin exam: no petechiae and no purpura Neuro General: patient oriented x3 and no focal motor deficits Extrem General: No clubbing and No edema Results Reviewed Nephrology Results: Hgb 12.6 g/dl (14.0-18.0) L 06/15/24 WBC 7.9 X10*3/uL (4.8-10.8) 06/15/24 Plt Count 221 X10*3/uL (160-400) 06/15/24 Sodium 141 mmol/L (135-145) 06/15/24 Potassium 5.6 mmol/L (3.3-5.1) H 06/15/24 Chloride 116 mmol/L (96-108) H 06/15/24 Carbon Dioxide 18 mmol/L (22-29) L 06/15/24 BUN 40 mg/dL (9-16) H 06/15/24 Creatinine 1.60 mg/dL (0.5-1.4) H 06/15/24 Calcium 9.8 mg/dL (8.4-10.2) 06/15/24 Phosphorus 3.3 mg/dL (2.7-4.5) 06/15/24 PTH Intact 167.7 pg/mL (8.7-77.1) H 06/15/24 Urine Protein 30 (1+) mg/dL (Neg-Trace) H 06/15/24 Urine Creatinine 105.93 mg/dL 05/19/24 Assessment & Plan Assessment & Plan (1) Hypertension, essential: Code(s): I10 - Essential (primary) hypertension Category: Medical Plan: Blood pressure is better controlled Continue with current regimen Stay on low-sodium diet Monitor blood pressure closely. (2) Renal transplant, status post: Comment: Transplant date 06/06/2021. Induction with Campath Maintain with tacrolimus. Baseline creatinine 1.5. Code(s): Z94.0 - Kidney transplant status Category: Surgical Plan He has had mild hyperkalemia with metabolic acidosis. Increased sodium bicarbonate 1300 mg BID Keep Lokelma 10 gm daily Dyslipidemia He is on atorvastatin 80 mg along with the Zetia. Was held last month Based on repeat labs, i will restart at 10 mg daily Monitor for secondary hyperparathyroidism. Hold cinacalcet and Rayaldee for now Recheck Ca/PTH Repeat labs ordered Orders: Orders Comprehensive Met. Panel Today Z94.0 - Kidney transplant status Tacrolimus Prograf Today Z94.0 - Kidney transplant status Complete Blood Count Auto Diff Today Z94.0 - Kidney transplant status Creatinine Urine Today Z94.0 - Kidney transplant status Total Protein Urine Random Today Z94.0 - Kidney transplant status UA and rflx microscopic Today Z94.0 - Kidney transplant status Medications: New omeprazole 10 mg PO DAILY 90 caps 1RF Coding Level of Care Code Est Pt Level 4 (79871) Complex EM visit Add On G2211 Diagnoses Hypertension, essential I10 Renal transplant, status post Z94.0
== END 2024-09-15 11:36 | disposition home or self-care (01) ==
LOC: HO.HKAS 10:27
PROVIDERS: PCP Internal Medicine; Visit Provider Internal Medicine Hypertension Specialist
DX: I10 Essential (primary) hypertension (principal); Z94.0 Kidney transplant status
CPT/HCPCS: 99214; G2211

== ENCOUNTER → 2024-09-15 10:27 | Outpatient (BNVA) | payer MEDICARE, MEDICAID, SELFPAY | PROVIDERS: PCP Internal Medicine; Visit Provider Internal Medicine Hypertension Specialist | DX: I10 Essential (primary) hypertension (principal); N06.20 Isolated proteinuria with diffuse membranous glomerulonephritis, unspecified; E78.5 Hyperlipidemia, unspecified; Z94.0 Kidney transplant status | CPT/HCPCS: 99212 ==

== ENCOUNTER 2024-12-21 09:09 | Outpatient (REF) | payer MEDICARE, MEDICAID, SELFPAY ==
--- OUTSIDE RECORDS SUMMARY | 2024-12-21 10:00 | XMS_ITS | Patient Health Record ---
Author Organization [facility] Address [address] [place] [id number] Care Team Providers Care Welder Shielded Metal Arc Name Role Phone Heri BOSWELL, Asma Primary Care Provider Judah Naqvi Jr Unavailable [phone] ALLERGIES Allergen (clinical drug ingredient) Drug/Non Drug Allergy documented on EMR Reaction Allergy Type Onset Date Status lactose (uncoded) Unknown Allergy Ac tive REASON FOR REFERRAL No Information MEDICATIONS Medication SIG (Take, Route, Frequency, Duration) Notes Start Date End Date Status Aspir-81 81 MG 1 tablet Orally Once a day for 30 day(s) Active amLODIPine Besylate 10 MG 1 tablet Orall y Once a day for 30 day(s) Active Viagra 50 MG 1 tablet as needed O rally as directed Active Colyte w Flavor Packs 240 GM as directed Orally as directed for 1 day(s) 04/13/2019 Active Omeprazole 20 MG 1 capsule Orally Onc e a day for 30 day(s) 03/26/2019 Active Atorvastatin Calcium 80 MG 1 tablet Oral ly Once a day for 30 day(s) Active Zofran 8 MG as directed Orally T wice a day/prn/nausea Active Vitamin D (Ergocalciferol) 50523 UNIT 1 capsule Orally once a week Active Renal 1 MG 1 capsule Orally Onc e a day for 30 day(s) Active Protonix 40 MG 1 tablet Orally Once a day as directed Active Simethicone 125 MG 1 tablet after meals and at bedtime as needed Orally Four times a day Active Renvela 800 MG 1 tablet with meals Orally Three times a day for 30 day(s) Active Endocet 5-325 MG 1 tablet as needed O rally every 6 hrs Active oxyCODONE-Acetaminophen 5-325 MG 1 tablet as needed Orally every 6 hrs Active Colace 100 MG 1 capsule as needed Orally twice a day Active Silver sulfADIAZINE 1 % 1 application to affected area Externally Once a day Active Colyte with Flavor Packs 240 GM As directed Orally Over the specified time. for 1 day(s) 01/28/2019 Active Losartan Potassium 50 MG 1 tablet Orally Once a day for 30 day(s) Active HYDROcodone-Acetaminophen 2.5-325 MG 1 tablet as needed Orally TID/PRN Active IMMUNIZATIONS Vaccine Route Administration Date Status Comme nts Influenza Unknown 07/27/2018 Administered SOCIAL HISTORY Tobacco Use: Social History Observation Description Date Details (start date - stop date) Current Smoker NA - NA Sex Assigned At : Social History Observation Description Sex Assigned At Unknown Tobacco Use/Smoking Question Answer Notes Patient is a current smoker When did you start smoking? sep 2018 How often do you smoke cigarettes? every day How many cigarettes a day do you smoke? 5 or les s Alcohol Screen Question Answer Notes Did you have a drink containing alcohol in the p ast year? No Points 0 Interpretation Negative PROBLEMS Problem Type ICD Code Onset Dates Problem Status W/U Status Risk SNOMED Code Notes Problem Weight loss (R63.4) Active confirmed 31529551 Problem Anemia, unspecified type (D64.9) Active confirmed 821134832 PLAN OF TREATMENT Future Test Test Name Order Date UPPER GI ENDOSCOPY 01/28/2019 COLONOSCOPY 01/28/2019 Insurance Providers Payer Name Payer Address Payer Phone Subscriber Number Group Number Insured Name Patient Relationship to Insured Coverage Start Date Coverage End Date MEDICARE OF [place] [address] [facility] [place] [address] [phone] [id number] KENDY BANKS Self - patient is the insured MEDICAID OF [facility] [address] [place] [address] [id number] KENDY BANKS Self - patient is the insured MEDICAL (GENERAL) HISTORY Medical History History ICD Code Chronic kidney disease Stage 5(severe)di alisis hypophosphatemia hypercholesterolemia anemia lactose intolerance irritable bowel syndrome depression stroke -2011 2 herinated disc left foot second toe infection Surgical History Surgery Date(Month/Year) hernia repair left eye fistula repair/graft colonoscopy, 04/18/14, normal, ten-year f ollowup
--- OUTSIDE RECORDS SUMMARY | 2024-12-21 10:00 | XMS_ITS | Clinical Summary ---
Author Organization [facility] Address [address] [facility] [address] [place] [address] Phone Care Team Providers Care Bird Keeper Name Role Phone Oumou Liriano MD Primary Care Provider [phone] Allergies Active Allergy Reactions Criticality Noted Date Comments Lactose Other (see comments) 10/09/2020 Medications acetaminophen-codeine (TYLENOL #2) 300-15 MG per tablet Take 1 tablet by mouth every 4 (four) hours if needed for moderate pain 30 tablet 5 022 Active torsemide (Demadex) 10 MG tablet Take 1 tablet (10 mg total) by mouth 1 (one) time each day 30 tablet 11 022 Active docusate sodium (COLACE) 100 MG capsule TAKE ONE CAPSULE BY MOUTH 3 (THREE) TIMES A DAY NEEDED FOR CONSTIPATION 30 capsule 11 023 Active Sodium Zirconium Cyclosilicate (Lokelma) 10 g pack Take 1 packet by mouth in the morning and 1 packet in the evening. 120 each 2024 Active carvedilol (COREG) 25 MG tablet Take 1 tablet (25 mg total) by mouth in the morning and 1 tablet (25 mg total) in the evening. Take 1 tablet (25 mg total) by mouth twice a day.. 180 tablet 2024 Active cinacalcet (SENSIPAR) 30 MG tablet Take 1 tablet (30 mg total) by mouth 1 (one) time each day Take 1 tablet by mouth one time each day 90 tablet 3 024 2024 Active atorvastatin (LIPITOR) 80 MG tablet Take 1 tablet (80 mg total) by mouth at bed time 90 tablet 2024 Active sodium bicarbonate 650 MG tablet Take 1300 mg in AM and 1950 mg oral in PM 120 tablet 5 Active amLODIPine (NORVASC) 10 MG tablet Take 1 tablet (10 mg total) by mouth 1 (one) time each day 30 tablet 11 024 2024 Active Empagliflozin (Jardiance) 10 MG tablet Take 10 mg by mouth 1 (one) time each day in the morning 30 tablet 11 024 2024 Active Envarsus XR 1 MG tablet sustained-release 24 hourIndications:Histor y of renal transplant Take 2 mg by mouth 1 (one) time each day 60 tablet 11 024 2024 Active ezetimibe (ZETIA) 10 MG tablet Take 1 tablet (10 mg total) by mouth 1 (one) time each day 90 tablet 3 Active lisinopril 40 MG tablet Take 1 tablet (40 mg total) by mouth 1 (one) time each day 90 tablet 3 024 2024 Active lidocaine (LIDODERM) 5 % patch Apply 1 patch topically 1 (one) time each day 90 patch 3 024 2024 Active Tacrolimus ER 0.75 MG tablet sustained-release 24 hourIndications:Kidney replaced by transplant Take 1.5 mg by mouth 1 (one) time each day Take 2 tablets a day for total dose of 1.5 mg 180 tablet 3 024 2024 Active Calcifediol ER (Rayaldee) 30 MCG capsule controlled-releaseIndi cations:Other hyperparathyroidism (HCC) Take 1 capsule by mouth 1 (one) time each day 30 capsule 5 024 2024 Active Active Problems Problem Noted Date Diagnosed Date Other mechanical complicatio n of surgically created arteriovenous fistula, subsequent encounter 08/16/2024 Clostridioides difficile infection 01/29/2022 Kidney transplant status 10/09/2021 Proteinuria 10/09/2021 Metabolic acidosis 09/12/2021 History of renal transplant 06/06/2021 Overview (12/17/2021): campath induction Anemia 10/09/2020 Secondary hypertension 10/09/2020 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 03/09/2018 Resolved Problems Problem Noted Date Diagnosed Date Resolved Date Tertiary hyperparathyroidism 10/09/2021 01/24/2022 Kidney transplant status 09/12/2021 Immunosuppressed 09/12/2021 01/24/2022 Hyperkalemia 09/12/2021 01/24/2022 Stage 5 chronic kidney disease 08/29/2021 09/12/2021 End-stage renal disease 10/09/202008/27 Familial hypercholesterolemia 10/09/2020 01/24/2022 H/O: psychiatric disorder 10/09/2020 Hypokalemia 10/09/2020 09/12/2021 Irritable bowel syndrome 10/09/2020 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 10/09/2020 H/O: depression 03/16/2018 01/24/2022 Lactose intolerance 03/09/2018 01/25/20 22 Hypercholesterolemia 03/09/2018 022 Immunizations Name Administration Dates Next Due MMR 11/15/2016 Pfizer SARS-COV-2 05/10/2021,04/17/2021 Family History Medical History Relation Comments Diabetes Mother Cancer Sibling Relation Status Comments Father Mother Alive Sibling Social History Tobacco Use Types Packs/Day Years Used Date Smoking Tobacco: Former Smokeless Tobacco: Never Tobacco Cessation:Counseling Given: No Comments:not currently Alcohol Use Standard Drinks/Week Comments No 0 (1 standard drink = 0.6 oz pur e alcohol) not currently Sex and Gender Information Value Date Recorded Sex Assigned at Not on file Legal Sex Male 5:09 PM EST Gender Identity Not on file Sexual Orientation Not on file Last Filed Vital Signs Vital Sign Reading Time Taken Comments Blood Pressure 160/85 08/16/2024 10:01 AM EDT Pulse 72 08/16/2024 10:01 AM EDT Temperature 36.4 ??C (97.5 ??F) 08/16/2024 10:01 AM E DT Respiratory Rate - - Oxygen Saturation 98% 08/16/2024 10:01 AM EDT Inhaled Oxygen Concentration - - Weight 71.2 kg (157 lb) 08/16/2024 10:01 AM EDT Height 160 cm (5' 3 ) 08/16/2024 10:01 AM EDT Body Mass Index 27.81 08/16/2024 10:01 AM EDT Plan of Treatment Health Maintenance Due Date Last Done Comments Pneumococcal Vaccine: Pediat rics (0 to 5 Years) and At-Risk Patients (6 to 64 Years) (1 of 2 - PCV) 1969 Colonoscopy (Post-Transplant Patient) 06/13/2021 Influenza Vaccine (#1) 2024 Colorectal Cancer Screening: Annual FOBT Discontinued 01/13/2019 Hepatitis B Vaccine Aged Out No longe r eligible based on patient's age to complete this topic Procedures Procedure Name Priority Date/Time Associated Diagnosis Comments TACROLIMUS LEVEL Routine 10/07/2024 7:05 AM EST RAJANI-ARELLANO VIRUS DNA, QUANTITATIVE Routine 10/07/2024 7:04 AM EST HEPATIC FUNCTION PANEL Routine 10/07/2024 7:04 AM EST OCCULT BLOOD X 3, STOOL Routine 01/13/2019 12:00 AM EDT from Last 3 Months or Most Recently Relevant to Health Maintenance Results * Tacrolimus level (10/07/2024 7:05 AM EST) Tacrolimus Lvl 15.1 2.0 - 20.0 ng/mL [facility] Comment: ?Trough (immediately following ?transplant) ? 15.0 ?Trough (steady state, 2 weeks or ?more after transplant): ?3.0 - 8.0 ?Performed by LC-MS/MS technology. 10/07/2024 7:05 AM EST 10/07/2024 Narrative [facility] - 10/11/2024 3:06 PM EST Test(s) [id number] (FK506), Blood was developed and its performance characteristics determined by [facility]. It has not been cleared or approved by the Food and Drug Administration. Heather Rodriguez MD LAB BLOOD ORDERABLES Final Result [facility] [address] [place] [address] * Rajani-Arellano virus DNA, quantitative (10/07/2024 7:04 AM EST) Pathologist [facility] EBV DNA, QN PCR Negative Negative IU/mL [facility] Comment: No EBV DNA detected. The linear range of this assay is 35 - 100,000,000 IU/mL 10/07/2024 7:04 AM EST 10/07/2024 Heather Rodriguez MD LAB BLOOD ORDERABLES Final Result [facility] [address] [place] [address] * (ABNORMAL) Hepatic Function Panel (10/07/2024 7:04 AM EST) Pathologist [facility] Total Protein 6.5 6.0 - 8.5 g/dL [facility] Albumin 3.8(L) 3.9 - 4.9 g/dL [facility] Total Bilirubin 0.2 0.0 - 1.2 mg/dL [facility] Alkaline Phosphatase 86 44 - 121 IU/L [facility] AST (SGOT) 11 0 - 40 IU/L [facility] ALT (SGPT) 9 0 - 44 IU/L [facility] Bilirubin, Direct 0.09 0.00 - 0.40 mg/dL [facility] 10/07/2024 7:04 AM EST 10/07/2024 Heather Rodriguez MD LAB BLOOD ORDERABLES Final Result [facility] [address] [place] [phone] * Occult blood x 3, stool (01/13/2019 12:00 AM EDT) Occult Blood, Stool #1 Negative Negative [employer] AFFILIATE MARKETING SPECIALIST Comment:Performed by [facility]. Occult Blood, Stool #2 Negative Negative APS SPECTRA AFFILIATE MARKETING SPECIALIST Comment:Performed by [facility]. Occult Blood, Stool #3 Negative Negative APS SPECTRA AFFILIATE MARKETING SPECIALIST Comment:Performed by [facility] Method. Collection Time 1,100 APS SPECTRA AFFILIATE MARKETING SPECIALIST Panel Comments Specimen source: Occult Blood Card [employer] AFFILIATE MARKETING SPECIALIST 01/13/2019 Jamal Dinh MD LAB BODY FLUIDS AND STOOLS EITAN GARCIA Final Result Performing Organization Address City/[facility]/ZIP Co de Phone Number APS SPECTRA AFFILIATE MARKETING SPECIALIST from Last 3 Months or Most Recently Relevant to Health Maintenance Insurance [place] Care Teams Bird Keeper Relationship Specialty Start Date End Date Oumou Liriano MD [address] [place] [address] PCP - General 08/31/19
--- OUTSIDE RECORDS SUMMARY | 2024-12-21 10:00 | XMS_ITS | Encounter Summary ---
Author Organization [facility] Address [address] [facility] [address] [place] [address] Phone Care Team Providers Care Ore Mixer Name Role Phone Oumou Liriano MD Primary Care Provider Reason for Visit * Reason Onset Date Comments Med Refill 06/04/2021 Encounter Details Date Type Department Care Team (Late st Contact Info) Description 06/04/2021 Refill [facility] [address] [place] [address] Clarisa Fuentes, LESLIE 100 [facility] [address] [place] [address] Social History Tobacco Use Types Packs/Day Years Used Date Smoking Tobacco: Former Comments:Smoking History Inf o:Every day Alcohol Use Standard Drinks/Week Comments No 0 (1 standard drink = 0.6 oz pure alcohol) Alcoholic Drinks/day: 1-2 drinks per day Sex and Gender Information Value Date Recorded Sex Assigned at Not on file Legal Sex Male 5:09 PM EST Gender Identity Not on file Sexual Orientation Not on file documented as of this encounter Plan of Treatment Not on file documented as of this encounter Visit Diagnoses Not on filedocumented in this encounter Care Teams Ore Mixer Relationship Specialty Start Date End Date Oumou Liriano MD [place] [place] [address] PCP - General 08/31/19 documented as of this encounter
--- OUTSIDE RECORDS SUMMARY | 2024-12-21 10:00 | XMS_ITS | Clinical Summary ---
Author Organization [facility] Address [address] [place] [address] Care Team Providers Care Rocket Propellant Plant Supervisor Name Role Phone Pcp, No Primary Care Provider Unavailabl e Social History Tobacco Use Types Packs/Day Years Used Date Smoking Tobacco: Never Assessed Sex and Gender Information Value Date Recorded Sex Assigned at Not on file Gender Identity Not on file Sexual Orientation Not on file Plan of Treatment Health Maintenance Due Date Last Done Comments Hepatitis C Virus Screening 1965 Pneumococcal Vaccine: Pediatric (0-5 Years) and At-Risk Patients (6 to 49 Years) (1 of 2 - PCV) 1969 HIV Screening 1976 DTaP/Tdap/Td Vaccines (1 - Tdap) 1982 Pneumococcal Vaccines 50+ (1 of 2 - PCV) 1982 Colonoscopy 2008 Zoster (Shingles) Vaccine (1 of 2) 2013 Influenza Vaccine 05/27/2024 COVID-19 Vaccine (3 - 2023-2 5 season) 2024 05/10/2021, 04/17/2021 RSV Vaccine 60 years and older and Patients (1 - 1-dose 75+ series) 2038 Hepatitis B Vaccines Aged Out No long er eligible based on patient's age to complete this topic Care Teams Rocket Propellant Plant Supervisor Relationship Specialty Start Date End Date Pcp, No [address] [place] [address] PCP - General 01/21/22
[2024-12-21 18:06] LABS: MANUAL DIFF FLAG NO
[2024-12-21 18:11] LABS: Appearance Urine Clear; Color Urine Yellow; Glucose Urine UA 500 mg/dL (Negative); Leukocyte Esterase Urine Negative (Negative); Nitrite Urine Negative (Negative); Specific Gravity - Urine 1.015 (1.005-1.025); UMIC TRIGGER UA YES; Urine Blood Negative (Negative); Urine Ketones Negative (Negative); Urine Protein 100 (2+) mg/dL (Neg-Trace)
[2024-12-21 18:14] LABS: Basophils Percent Auto 0.5 % (0-2); Eosinophils Absolute Auto 0.2 X10*3/uL (0.0-0.4); Eosinophils Percent Auto 2.2 % (0-4); Hematocrit 42.2 % (42.0-52.0); Hemoglobin 13.4 g/dl (14.0-18.0); Imm Gran Abs Auto 0.02 X10*3/uL (0.00-0.03); Imm Gran Pct Auto 0.2 % (0.0-0.4); Lymphocytes Percent Auto 11.7 % (20-40); Mean Corpuscular HGB Conc 31.8 g/dl (31.0-36.0); Mean Corpuscular Hemoglobin 29.8 pg (27.0-33.0); Monocytes Percent Auto 12.2 % (2-11); Neutrophils Percent Auto 73.2 % (45-73); Platelet Count 204 X10*3/uL (160-400); Red Blood Count 4.49 X10*6/uL (4.60-5.80); Red Cell Distribution Width 13.5 % (11.0-16.0); White Blood Count 8.2 X10*3/uL (4.8-10.8)
[2024-12-21 18:16] LABS: Bacteria Urine None Seen (None Seen); Hyaline Casts Urine 0-2 /LPF (0-2); RBC Urine 0-2 /HPF (0-2); Squamous Epithelial Cell Urine 0-2 /HPF (0-2); WBC Urine 0-5 /HPF (0-5)
[2024-12-21 18:33] LABS: Creatinine Urine 87.52 mg/dL; Total Protein Urine Random 46 mg/dL (<12)
[2024-12-21 18:36] LABS: Alanine Aminotransferase 11 U/L (0-40); Albumin Level 4.1 g/dL (3.5-5.0); Alkaline Phosphatase 73 U/L (39-117); Anion Gap 12 (12-20); Aspartate Amino Transferase 19 U/L (5-37); Bilirubin Total 0.6 mg/dL (0.0-1.0); Blood Urea Nitrogen 33 mg/dL (9-16); Calcium 11.2 mg/dL (8.4-10.2); Carbon Dioxide 17 mmol/L (22-29); Chloride 118 mmol/L (96-108); Estimated Glomerular Filt Rate 55; Glucose Random 96 mg/dL (60-115); Potassium 6.5 mmol/L (3.3-5.1); Sodium 140 mmol/L (135-145); Total Protein 7.6 g/dL (6.5-8.0)
[2024-12-21 18:39] LABS: Parathyroid Hormone Intact 250.5 pg/mL (8.7-77.1)
== END 2024-12-21 09:10 | disposition home or self-care (01) ==
LOC: HO.HKASLDS 09:09
PROVIDERS: Visit Provider Internal Medicine Hypertension Specialist
DX: Z94.0 Kidney transplant status (principal)
CPT/HCPCS: 36415; 80053; 80197; 81001; 82570; 83970; 84156; 85025

== ENCOUNTER 2024-12-22 10:37 | Outpatient (AMB) | payer MEDICARE, MEDICAID, SELFPAY ==
[2024-12-22 10:58] VITALS: BP 124/68; PULSE 64; O2SAT 98; BMI 26.6
--- NOTE | 2024-12-22 10:58 | HO.NEPHOV_ITS ---
Vital Signs 12/22/24 10:58 Height 5 ft 3 in Weight 150 lb BMI 26.6 BP 124/68 Blood Pressure Location Rt brachial Position Sitting Pulse 64 Pulse Source Pulse Oximeter Pulse Oximetry (%) 98 Oxygen Delivery Method Room Air Intake Visit Reasons: 3 mnts f/u/ Conf Equipment Service Lead Required: No Accompanied by: Self / Same As Patient Allergies lactose Allergy (Unknown, Verified 12/22/24 11:00) Unknown Medication List - Last Reconciled 12/22/24 by Jason Goldstein MD acetaminophen 500 mg PO Q6H PRN amlodipine 10 mg PO DAILY atorvastatin 10 mg PO DAILY cane As directed carvedilol 25 mg PO BID empagliflozin (Jardiance) 10 mg PO DAILY lisinopril 40 mg PO DAILY omeprazole 10 mg PO DAILY Shower Chair As directed sodium bicarbonate 1,300 mg (2 x 650 mg) PO BID sodium zirconium cyclosilicate (Lokelma) 10 grams PO DAILY tacrolimus XR (Envarsus XR) 1 mg PO DAILY tacrolimus XR (Envarsus XR) 2 mg PO DAILY HPI Comments Details: . Rodney is well known to me. 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 He underwent kidney transplant 2 years ago. Date of transplant 06/06/2021. 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 Current modality renal transplant Campath induction Maintenance with tacrolimus. Patient creatinine 1.5. No history of rejection. He was previously seen by Dr. Fagan for transplant follow-up. Since her exit from [facility] he wants to switch care to us. He is concerned about taking multiple medications. Today he has no specific complaints. 06/16/24;No new issues today 07/14/2024. ; Recently he was in emergency room because of pain in the AV fistula. Ultrasound was done and there was no clots. No evidence of infection. He has been referred to the vascular surgeon. 09/15/24 ;Had diarrhea last month; Resolved. 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 Mother No problems noted. Sister HTN (hypertension) CVD (cardiovascular disease) Myocardial infarction Cancer Maternal Grandmother Cancer Maternal Grandfather No problems noted. Paternal Grandfather Unknown family medical history Paternal Grandmother Unknown family medical history Sister No problems noted. Brother No problems noted. Brother Substance use disorder Son No problems noted. Daughter No problems noted. Social History Housing: Apartment Alcohol intake: never Patient Tobacco Use Status: Former Tobacco user Cigarettes Per Day: 3 Years Smoked: 12 years e-Cigarette/Vaping Use: Never Used Current occupational status: retired and disabled Cognitive needs: No Hearing needs: No Vision needs: No Physical Exam Vital Signs: Last Vital Signs Pulse 64 12/22/24 10:58 BP 124/68 12/22/24 10:58 Pulse Ox 98 12/22/24 10:58 Oxygen Delivery Method Room Air 12/22/24 10:58 BMI result Body Mass Index 26.6 Comfortable Neck supple no JVD. Lungs entry equal no rales. Heart S1-S2 heard no gallop or rub. Abdomen soft nontender. Neuro alert awake oriented. No asterixis. Extremities no edema. Results Reviewed Nephrology Results: Hgb 13.4 g/dl (14.0-18.0) L 12/21/24 WBC 8.2 X10*3/uL (4.8-10.8) 12/21/24 Plt Count 204 X10*3/uL (160-400) 12/21/24 Sodium 140 mmol/L (135-145) 12/21/24 Potassium 6.5 mmol/L (3.3-5.1) H* 12/21/24 Chloride 118 mmol/L (96-108) H 12/21/24 Carbon Dioxide 17 mmol/L (22-29) L 12/21/24 BUN 33 mg/dL (9-16) H 12/21/24 Creatinine 1.33 mg/dL (0.5-1.4) 12/21/24 Calcium 11.2 mg/dL (8.4-10.2) H 12/21/24 Phosphorus 3.3 mg/dL (2.7-4.5) 06/15/24 PTH Intact 250.5 pg/mL (8.7-77.1) H 12/21/24 Urine Protein 100 (2+) mg/dL (Neg-Trace) H 12/21/24 Urine Creatinine 87.52 mg/dL 12/21/24 Assessment & Plan Assessment & Plan (1) Renal transplant, status post: Comment: Transplant date 06/06/2021. Induction with Campath Maintain with tacrolimus. Baseline creatinine 1.5. Code(s): Z94.0 - Kidney transplant status Category: Surgical (2) Hypertension, essential: Code(s): I10 - Essential (primary) hypertension Category: Medical Plan: Blood pressure is better controlled Continue with current regimen Stay on low-sodium diet Monitor blood pressure closely. Plan He has had mild hyperkalemia with metabolic acidosis. Increased sodium bicarbonate 1300 mg BID Lokelma 10 gm 3x Dyslipidemia He is on atorvastatin 80 mg along with the Zetia. Was held last month Monitor for secondary hyperparathyroidism. Ca and PTH elevated Restart cinacalcet 30 QD Orders: Orders Basic Metabolic Panel 4 Weeks Z94.0 - Kidney transplant status Parathyroid Hormone Intact 4 Weeks Z94.0 - Kidney transplant status Lipid Panel 4 Weeks Z94.0 - Kidney transplant status Medications: New cinacalcet 30 mg PO DAILY 90 tabs 1RF Coding Level of Care Code Est Pt Level 4 (17136) Diagnoses Renal transplant, status post Z94.0 Hypertension, essential I10
--- OUTSIDE RECORDS SUMMARY | 2024-12-22 13:10 | XMS_ITS | Patient Health Record ---
Author Organization [facility] Address [address] [place] [address] Care Team Providers Care Slip Cover Maker Name Role Phone Heri BOSWELL, Asma Primary Care Provider Judah Naqvi Jr Unavailable [phone] ALLERGIES Allergen (clinical drug ingredient) Drug/Non Drug [...] wice a day/prn/nausea Active Vitamin D (Ergocalciferol) 17053 UNIT 1 capsule Orally once a week [...] Notes Problem Weight loss (R63.4) Active confirmed 29561637 Problem Anemia, unspecified type (D64.9) Active confirmed 050201462 PLAN OF TREATMENT Future Test Test Name Order Date UPPER GI ENDOSCOPY 01/28/2019 COLONOSCOPY 01/28/2019 Insurance Providers Payer Name Payer Address Payer Phone Subscriber Number Group Number Insured Name Patient Relationship to Insured Coverage Start Date Coverage End Date MEDICARE OF [place] [address] [facility] [place] [address] [id number] KENDY BANKS Self - patient is the insured MEDICAID OF [facility] [address] [place] [address] [id number] KENDY BANKS Self - patient is the [...]
--- OUTSIDE RECORDS SUMMARY | 2024-12-22 13:10 | XMS_ITS | Encounter Summary ---
Author Organization [facility] Address 100 [facility] [address] [place] [address] Phone Care Team Providers Care Clip Riveter Name Role Phone Oumou Liriano MD Primary Care Provider [phone] Reason for Visit * Reason Onset Date Comments Med Refill 06/04/2021 Encounter Details Date Type Department Care Team (Late st Contact Info) Description 06/04/2021 Refill [facility] [address] [place] [address] Clarisa Fuentes RN [address] [facility] [address] [place] [address] Social History Tobacco Use Types [...] on filedocumented in this encounter Care Teams Clip Riveter Relationship Specialty Start Date End Date Oumou Liriano MD [facility] [place] [address] PCP - General 08/31/19 documented as of this encounter
--- OUTSIDE RECORDS SUMMARY | 2024-12-22 13:10 | XMS_ITS | Clinical Summary ---
Author Organization [facility] Address 100 [facility] [address] [place] [address] Phone Care Team Providers Care Time Study Technologist Name Role Phone Oumou Liriano MD Primary Care Provider [phone] Allergies Active Allergy Reactions Criticality Noted Date [...] Tacrolimus Lvl 15.1 2.0 - 20.0 ng/mL [facility] Comment: ?Trough (immediately following ?transplant) ? 15.0 ?Trough (steady state, 2 weeks or ?more after transplant): ?3.0 - 8.0 ?Performed by LC-MS/MS technology. 10/07/2024 7:05 AM EST 10/07/2024 Narrative [facility] - 10/11/2024 3:06 PM EST Test(s) [id number] (FK506), Blood was developed and its performance characteristics determined by [facility]. It has not been cleared or approved by the Food and Drug Administration. Heather Rodriguez MD LAB BLOOD ORDERABLES Final Result [facility] [address] [place] [address] * Rajani-Arellano virus DNA, quantitative (10/07/2024 7:04 AM EST) Pathologist [facility] EBV DNA, QN PCR Negative Negative IU/mL [facility] Comment: No EBV DNA detected. The linear range of this assay is 35 - 100,000,000 IU/mL 10/07/2024 7:04 AM EST 10/07/2024 Heather Rodriguez MD LAB BLOOD ORDERABLES Final Result [facility] [address] [place] [address] * (ABNORMAL) Hepatic Function Panel (10/07/2024 7:04 AM EST) Pathologist [facility] Total Protein 6.5 6.0 - 8.5 g/dL [facility] Albumin 3.8(L) 3.9 - 4.9 g/dL [facility] Total Bilirubin 0.2 0.0 - 1.2 mg/dL [facility] Alkaline Phosphatase 86 44 - 121 IU/L [facility] AST (SGOT) 11 0 - 40 IU/L [facility] ALT (SGPT) 9 0 - 44 IU/L [facility] Bilirubin, Direct 0.09 0.00 - 0.40 mg/dL [facility] 10/07/2024 7:04 AM EST 10/07/2024 Heather Rodriguez MD LAB BLOOD ORDERABLES Final Result [facility] [address] [place] [phone] * Occult blood x 3, stool (01/13/2019 12:00 AM EDT) Occult Blood, Stool #1 Negative Negative [employer] AXMINSTER WEAVER Comment:Performed by [facility] Method. Occult Blood, Stool #2 Negative Negative APS SPECTRA AXMINSTER WEAVER Comment:Performed by [facility] Method. Occult Blood, Stool #3 Negative Negative APS SPECTRA AXMINSTER WEAVER Comment:Performed by [facility] Method. Collection Time 1,100 APS SPECTRA AXMINSTER WEAVER Panel Comments Specimen source: Occult Blood Card [facility] S[employer]RA AXMINSTER WEAVER 01/13/2019 Jamal Dinh MD LAB BODY FLUIDS AND STOOLS EITAN GARCIA Final Result Performing Organization Address City/[facility]/ZIP Co de Phone Number APS SPECTRA AXMINSTER WEAVER from Last 3 Months or Most Recently Relevant to Health Maintenance Insurance [place] Care Teams Time Study Technologist Relationship Specialty Start Date End Date Oumou Liriano MD [address] [place] [address] PCP - General 08/31/19
--- OUTSIDE RECORDS SUMMARY | 2024-12-22 13:10 | XMS_ITS | Clinical Summary ---
Author Organization [facility] Address [address] [place] [address] Care Team Providers Care Water Taxi Driver Name Role Phone Pcp, No Primary Care [...] age to complete this topic Care Teams Water Taxi Driver Relationship Specialty Start Date End Date Pcp, No [address] [place] [address] PCP - General 01/21/22
== END 2024-12-22 11:31 | disposition home or self-care (01) ==
PROVIDERS: PCP Internal Medicine; Visit Provider Internal Medicine Hypertension Specialist
DX: Z94.0 Kidney transplant status (principal); I10 Essential (primary) hypertension
CPT/HCPCS: 99214

== ENCOUNTER → 2024-12-22 10:37 | Outpatient (BNVA) | payer MEDICARE, MEDICAID, SELFPAY | PROVIDERS: PCP Internal Medicine; Visit Provider Internal Medicine Hypertension Specialist | DX: Z94.0 Kidney transplant status (principal); I10 Essential (primary) hypertension; E87.5 Hyperkalemia; E78.5 Hyperlipidemia, unspecified; N25.81 Secondary hyperparathyroidism of renal origin; Z79.899 Other long term (current) drug therapy | CPT/HCPCS: 99212 ==

== ENCOUNTER 2025-02-08 09:27 | Outpatient (REF) | payer MEDICARE, MEDICAID, SELFPAY ==
--- OUTSIDE RECORDS SUMMARY | 2025-02-08 10:36 | XMS_ITS | Encounter Summary ---
Author Organization [facility] Address [address] [facility] [address] [place] [address] Phone Care Team Providers Care Merchandising Stock Associate Name Role Phone Oumou Liriano MD Primary Care Provider [phone] Reason for Visit * Reason Onset Date Comments Med Refill 06/04/2021 Encounter Details Date Type Department Care Team (Late st Contact Info) Description 06/04/2021 Refill [facility] [address] [place] [address] Clarisa Fuentes, LESLIE 100 [facility] [address] [place] [address] Social History Tobacco Use Types [...] on filedocumented in this encounter Care Teams Merchandising Stock Associate Relationship Specialty Start Date End Date Oumou Liriano MD [facility] [place] [address] PCP - General 08/31/19 documented as of this encounter
--- OUTSIDE RECORDS SUMMARY | 2025-02-08 10:36 | XMS_ITS | Clinical Summary ---
Author Organization [facility] Address [address] [place] [address] Care Team Providers Care Manager Cardiac Name Role Phone Pcp, No Primary Care [...] age to complete this topic Care Teams Manager Cardiac Relationship Specialty Start Date End Date Pcp, No [address] [place] [address] PCP - General 01/21/22
--- OUTSIDE RECORDS SUMMARY | 2025-02-08 10:36 | XMS_ITS | Clinical Summary ---
Author Organization [facility] Address [address] [facility] [address] [place] [address] Phone Care Team Providers Care Outside Installation Machinist Name Role Phone Oumou Liriano MD Primary Care Provider [phone] Allergies Active Allergy Reactions Criticality Noted Date Comments Lactose Other (see comments) 10/09/2020 Medications acetaminophen-codeine (TYLENOL #2) 300-15 MG per tablet Take 1 tablet by mouth every 4 (four) hours if needed for moderate pain 30 tablet Active torsemide (Demadex) 10 MG tablet Take 1 tablet (10 mg total) by mouth 1 (one) time each day 30 tablet Active docusate sodium (COLACE) 100 MG capsule TAKE ONE CAPSULE BY MOUTH 3 (THREE) TIMES A DAY NEEDED FOR CONSTIPATION 30 capsule Active carvedilol (COREG) 25 MG tablet Take 1 tablet (25 mg total) by mouth in the morning and 1 tablet (25 mg total) in the evening. Take 1 tablet (25 mg total) by mouth twice a day.. 180 tablet Active cinacalcet (SENSIPAR) 30 MG tablet Take 1 tablet (30 mg total) by mouth 1 (one) time each day Take 1 tablet by mouth one time each day 90 tablet Active atorvastatin (LIPITOR) 80 MG tablet Take 1 tablet (80 mg total) by mouth at bed time 90 tablet Active sodium bicarbonate 650 MG tablet Take 1300 mg in AM and 1950 mg oral in PM 120 tablet Active amLODIPine (NORVASC) 10 MG tablet Take 1 tablet (10 mg total) by mouth 1 (one) time each day 30 tablet Active ezetimibe (ZETIA) 10 MG tablet Take 1 tablet (10 mg total) by mouth 1 (one) time each day 90 tablet 3 Active lisinopril 40 MG tablet Take 1 tablet (40 mg total) by mouth 1 (one) time each day 90 tablet 3 Active Calcifediol ER (Rayaldee) 30 MCG capsule controlled-releaseIndi cations:Other hyperparathyroidism (HCC) Take 1 capsule by mouth 1 (one) time each day 30 capsule 5 024 2024 Active Sodium Zirconium Cyclosilicate (Lokelma) 10 g pack Take 1 packet by mouth in the morning and 1 packet in the evening. 120 each 11 024 2024 Empagliflozin (Jardiance) 10 MG tablet Take 10 mg by mouth 1 (one) time each day in the morning 30 tablet 11 024 2024 Envarsus XR 1 MG tablet sustained-release 24 hourIndications:Histor y of renal transplant Take 2 mg by mouth 1 (one) time each day 60 tablet 11 024 2024 lidocaine (LIDODERM) 5 % patch Apply 1 patch topically 1 (one) time each day 90 patch 3 024 2024 Tacrolimus ER 0.75 MG tablet sustained-release 24 hourIndications:Kidney replaced by transplant Take 1.5 mg by mouth 1 (one) time each day Take 2 tablets a day for total dose of 1.5 mg 180 tablet 3 024 2024 Active Problems Problem Noted Date Diagnosed Date [...] depression 03/16/2018 01/24/2022 Lactose intolerance 03/09/2018 01/25/20 Hypercholesterolemia 03/09/2018 022 Encounters Date Type Department Care Team Description 01/25/2025 Refill [facility] [address] [place] [id number] Barbara Mayers from Last 3 Months Immunizations Immunization Administration Dates Next Due MMR 11/15/2016 Pfizer [...] Due Date Last Done Comments Pneumococcal Vaccine: 50+ Ye ars (1 of 2 - PCV) 1982 Colonoscopy (Post-Transplant Patient) 06/13/2021 Influenza Vaccine (Season Ended) 2025 Colorectal Cancer Screening: Annual FOBT Discontinued 01/13/2019 Hepatitis B Vaccine Aged Out No longe r eligible based on patient's age to complete this topic Procedures Procedure Name Priority Date/Time Associated Diagnosis Comments OCCULT BLOOD X 3, STOOL Routine 01/13/2019 12:00 AM EDT from Last 3 Months or Most Recently Relevant to Health Maintenance Results * Occult blood x 3, stool (01/13/2019 12:00 AM EDT) Occult Blood, Stool #1 Negative Negative APS SPECTRA PACKING ROOM WORKER Comment:Performed by Guaiac Method. Occult Blood, Stool #2 Negative Negative APS SPECTRA PACKING ROOM WORKER Comment:Performed by [employer]ai[employer] Method. Occult Blood, Stool #3 Negative Negative APS SPECTRA PACKING ROOM WORKER Comment:Performed by Guaiac Method. Collection Time 1,100 APS SPECTRA PACKING ROOM WORKER Panel Comments Specimen source: Occult Blood Card APS SPECTRA PACKING ROOM WORKER 01/13/2019 Jamal Dinh MD LAB BODY FLUIDS AND STOOLS EITAN GARCIA Final Result APS SPECTRA PACKING ROOM WORKER from Last 3 Months or Most Recently Relevant to Health Maintenance Insurance Medicare Medicaid [place] Medicare Care Teams Outside Installation Machinist Relationship Specialty Start Date End Date Oumou Liriano MD [facility] [place] [id number] PCP - General 08/31/19
[2025-02-08 18:47] LABS: Anion Gap 14 (12-20); Blood Urea Nitrogen 35 mg/dL (9-16); Calcium 9.3 mg/dL (8.4-10.2); Carbon Dioxide 18 mmol/L (22-29); Chloride 118 mmol/L (96-108); Cholesterol 113 mg/dL (<200); Estimated Glomerular Filt Rate 51; Glucose Random 154 mg/dL (60-115); HDL Cholesterol 30 mg/dL (>40); LDL Cholesterol Calculated 55 mg/dL (<100); Potassium 5.2 mmol/L (3.3-5.1); Sodium 145 mmol/L (135-145); Triglycerides 141 mg/dL (<150)
[2025-02-08 18:57] LABS: Parathyroid Hormone Intact 269.1 pg/mL (8.7-77.1)
== END 2025-02-08 09:28 | disposition home or self-care (01) ==
LOC: HO.HKASLDS 09:27
PROVIDERS: Visit Provider Internal Medicine Hypertension Specialist
DX: Z94.0 Kidney transplant status (principal)
CPT/HCPCS: 36415; 80048; 80061; 83970

== ENCOUNTER 2025-02-09 11:43 | Outpatient (AMB) | payer MEDICARE, MEDICAID, SELFPAY ==
[2025-02-09 11:49] VITALS: BP 116/58; PULSE 61; O2SAT 98; BMI 26.1
--- NOTE | 2025-02-09 11:49 | HO.NEPHOV_ITS ---
Vital Signs 02/09/25 11:49 Height 5 ft 3 in Weight 147 lb 8 oz BMI 26.1 BP 116/58 L Blood Pressure Location Rt brachial Position Sitting Pulse 61 Pulse Source Pulse Oximeter Pulse Oximetry (%) 98 Oxygen Delivery Method Room Air Intake Visit Reasons: 6-8wk follow up/ Conf Allergies lactose Allergy (Unknown, Verified 02/09/25 11:51) Unknown Medication List - Last Reconciled 02/09/25 by Jason Goldstein MD acetaminophen 500 mg PO Q6H PRN amlodipine 10 mg PO DAILY atorvastatin 10 mg PO DAILY cane As directed carvedilol 25 mg PO BID cinacalcet 30 mg PO DAILY empagliflozin (Jardiance) 10 mg PO DAILY lisinopril 40 mg PO DAILY omeprazole 10 mg PO DAILY Shower Chair As directed sodium bicarbonate 1,300 mg (2 x 650 mg) PO BID sodium zirconium cyclosilicate (Lokelma) 10 grams PO DAILY tacrolimus XR (Envarsus XR) 2 mg PO DAILY tacrolimus XR (Envarsus XR) 0.75 mg PO DAILY HPI Comments Details: Middle-aged man with 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 He underwent kidney transplant 2 years ago. Date of transplant 06/06/2021. 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 Current modality renal transplant Campath induction Maintenance with tacrolimus. Patient creatinine 1.5. No history of rejection. He was previously seen by Dr. Fagan for transplant follow-up. Since her exit from [facility] he wants to switch care to us. He is concerned about taking multiple medications. Today he has no specific complaints. 06/16/24;No new issues today 07/14/2024. ; Recently he was in emergency room because of pain in the AV fistula. Ultrasound was done and there was no clots. No evidence of infection. He has been referred to the vascular surgeon. 09/15/24 ;Had diarrhea last month; Resolved. 12/22/24 ; Lost 10 lbs with exercise; Takes Lokelma ;Admits to eating K rich food 02/09/25 Overall doing well. 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 Mother No problems noted. Sister HTN (hypertension) CVD (cardiovascular disease) Myocardial infarction Cancer Maternal Grandmother Cancer Maternal Grandfather No problems noted. Paternal Grandfather Unknown family medical history Paternal Grandmother Unknown family medical history Sister No problems noted. Brother No problems noted. Brother Substance use disorder Son No problems noted. Daughter No problems noted. Social History Housing: Apartment Alcohol intake: never Patient Tobacco Use Status: Former Tobacco user Cigarettes Per Day: 3 Years Smoked: 12 years e-Cigarette/Vaping Use: Never Used Current occupational status: retired and disabled Cognitive needs: No Hearing needs: No Vision needs: No Physical Exam Vital Signs: Last Vital Signs Pulse 61 02/09/25 11:49 BP 116/58 L 02/09/25 11:49 Pulse Ox 98 02/09/25 11:49 Oxygen Delivery Method Room Air 02/09/25 11:49 BMI result Body Mass Index 26.1 Comfortable Neck supple no JVD. Lungs entry equal no rales. Heart S1-S2 heard no gallop or rub. Abdomen soft nontender. Neuro alert awake oriented. No asterixis. Extremities no edema. Results Reviewed Nephrology Results: Hgb 13.4 g/dl (14.0-18.0) L 12/21/24 WBC 8.2 X10*3/uL (4.8-10.8) 12/21/24 Plt Count 204 X10*3/uL (160-400) 12/21/24 Sodium 145 mmol/L (135-145) 02/08/25 Potassium 5.2 mmol/L (3.3-5.1) H 02/08/25 Chloride 118 mmol/L (96-108) H 02/08/25 Carbon Dioxide 18 mmol/L (22-29) L 02/08/25 BUN 35 mg/dL (9-16) H 02/08/25 Creatinine 1.42 mg/dL (0.5-1.4) H 02/08/25 Calcium 9.3 mg/dL (8.4-10.2) 02/08/25 PTH Intact 269.1 pg/mL (8.7-77.1) H 02/08/25 Urine Protein 100 (2+) mg/dL (Neg-Trace) H 12/21/24 Urine Creatinine 87.52 mg/dL 12/21/24 Assessment & Plan Assessment & Plan (1) Renal transplant, status post: Comment: Transplant date 06/06/2021. Induction with Campath Maintain with tacrolimus. Baseline creatinine 1.5. Code(s): Z94.0 - Kidney transplant status Category: Surgical (2) Hypertension, essential: Code(s): I10 - Essential (primary) hypertension Category: Medical Plan: Blood pressure is better controlled Continue with current regimen Stay on low-sodium diet Monitor blood pressure closely. Plan He has had mild hyperkalemia with metabolic acidosis. Increased sodium bicarbonate 1300 mg BID Lokelma 10 gm 3x week Dyslipidemia He is on atorvastatin 80 mg along with the Zetia. Was held last month Monitor for secondary hyperparathyroidism. Ca and PTH elevated Restarted cinacalcet 30 QD Medications: New tacrolimus XR (Envarsus XR) 2 mg (2 x 1 mg) PO DAILY 120 tabs 4RF Coding Level of Care Code Est Pt Level 4 (45895) Diagnoses Renal transplant, status post Z94.0 Hypertension, essential I10
--- OUTSIDE RECORDS SUMMARY | 2025-02-09 14:13 | XMS_ITS | Patient Health Record ---
Author Organization [facility] Address [address] [place] [id number] Care Team Providers Care Shake Cutter Name Role Phone Heri BOSWELL, Asma Primary Care Provider Judah Naqvi Jr Unavailable [phone] Allergies Allergen (clinical drug ingredient) Drug/Non Drug Allergy documented on EMR Reaction Allergy Type Onset Date Status lactose (uncoded) Unknown Allergy Ac tive Reason For Referral No Information Medications Medication SIG (Take, Route, Frequency, Duration) Notes [...] wice a day/prn/nausea Active Vitamin D (Ergocalciferol) 57557 UNIT 1 capsule Orally once a week [...] 1 tablet as needed Orally TID/PRN Active Immunizations Vaccine Route Administration Date Status Comme nts Influenza Unknown 07/27/2018 Administered Social History Tobacco Use: Social History Observation Description Date Details (start date - stop date) Current Smoker NA - NA Tobacco Use/Smoking Question Answer Notes Patient is a current smoker When did you start smoking? sep 2018 How often do you smoke cigarettes? every day How many cigarettes a day do you smoke? 5 or les s Alcohol Screen Question Answer Notes Did you have a drink containing alcohol in the p ast year? No Points 0 Interpretation Negative Problems Problem Type SNOMED Code ICD Code Onset Dates Problem Status W/U Status Risk Notes Problem 94554984 Weight loss (R63.4) Active confirmed Problem 391114375 Anemia, unspecified type (D64.9) Active confirmed Plan Of Treatment Future Test Test Name Order Date UPPER GI ENDOSCOPY 01/28/2019 COLONOSCOPY 01/28/2019 Insurance Providers Payer Name Payer Address Payer Phone Subscriber Number Group Number Insured Name Patient Relationship to Insured Coverage Start Date Coverage End Date MEDICARE OF [place] [address] [place] [id number] KENDY BANKS Self - patient is the insured MEDICAID OF [facility] [address] [place] [address] [id number] KENDY BANKS Self - patient is the insured Medical (General) History Medical History History ICD Code Chronic kidney disease Stage 5(severe)di alisis hypophosphatemia hypercholesterolemia anemia lactose intolerance irritable bowel syndrome depression stroke -2011 2 herinated disc left foot second toe infection Surgical History Surgery Date(Month/Year) hernia repair left eye fistula repair/graft colonoscopy, 04/18/14, normal, ten-year f ollowup
--- OUTSIDE RECORDS SUMMARY | 2025-02-09 14:13 | XMS_ITS | Encounter Summary ---
Author Organization [facility] Address [address] [facility] [address] [place] [address] Phone Care Team Providers Care Music Supervisor Name Role Phone Oumou Liriano MD Primary Care Provider [phone] Reason for Visit * Reason Onset Date Comments Med Refill 06/04/2021 Encounter Details Date Type Department Care Team (Late st Contact Info) Description 06/04/2021 Refill [facility] [address] [place] [address] Clarisa Fuentes, LESLIE [address] [facility] [address] [place] [address] Social History Tobacco Use Types [...] on filedocumented in this encounter Care Teams Music Supervisor Relationship Specialty Start Date End Date Oumou Liriano MD [facility] [place] [address] PCP - General 08/31/19 documented as of this encounter
--- OUTSIDE RECORDS SUMMARY | 2025-02-09 14:13 | XMS_ITS | Clinical Summary ---
Author Organization [facility] Address [address] [place] [address] Care Team Providers Care It Architecture Analyst Name Role Phone Pcp, No Primary Care Provider Unavailabl e Social History Tobacco Use Types Packs/Day Years Used Date Smoking Tobacco: Never Assessed Sex and Gender Information Value Date Recorded Sex Assigned at Not on file Legal Sex Male 3:03 PM EST Gender Identity Not on file [...] on patient's age to complete this topic Insurance [address] [facility] [place] [id number] MEDICARE PART A & B Care Teams It Architecture Analyst Relationship Specialty Start Date End Date Pcp, No [address] [place] [address] PCP - General 01/21/22
--- OUTSIDE RECORDS SUMMARY | 2025-02-09 14:13 | XMS_ITS | Clinical Summary ---
Author Organization [facility] Address [address] [facility] [address] [place] [address] Phone Care Team Providers Care Cst Name Role Phone Oumou Liriano MD Primary Care Provider [phone] Allergies Active Allergy Reactions Criticality Noted Date [...] 01/25/2025 Refill [facility] [address] [place] [phone] Barbara Mayers from Last 3 Months Immunizations [...] Blood, Stool #1 Negative Negative APS SPECTRA FRUIT TESTER Comment:Performed by Guaiac Method. Occult Blood, Stool #2 Negative Negative APS SPECTRA FRUIT TESTER Comment:Performed by Guaiac Method. Occult Blood, Stool #3 Negative Negative APS SPECTRA FRUIT TESTER Comment:Performed by Guaiac Method. Collection Time 1,100 APS SPECTRA FRUIT TESTER Panel Comments Specimen source: Occult Blood Card APS SPECTRA FRUIT TESTER 01/13/2019 Jamal Dinh MD LAB BODY FLUIDS AND STOOLS EITAN GARCIA Final Result APS SPECTRA FRUIT TESTER from Last 3 Months or Most Recently Relevant to Health Maintenance Insurance [place] Care Teams Cst Relationship Specialty Start Date End Date Oumou Liriano MD [facility] [place] [id number] PCP - General 08/31/19
== END 2025-02-09 12:08 | disposition home or self-care (01) ==
LOC: HO.HKAS 11:43
PROVIDERS: PCP Internal Medicine; Visit Provider Internal Medicine Hypertension Specialist
DX: Z94.0 Kidney transplant status (principal); I10 Essential (primary) hypertension
CPT/HCPCS: 99214

== ENCOUNTER → 2025-02-09 11:43 | Outpatient (BNVA) | payer MEDICARE, MEDICAID, SELFPAY | PROVIDERS: PCP Internal Medicine; Visit Provider Internal Medicine Hypertension Specialist | DX: I10 Essential (primary) hypertension (principal); Z94.0 Kidney transplant status | CPT/HCPCS: 99212 ==

== ENCOUNTER 2025-02-23 12:38 | Outpatient (AMB) | payer MEDICARE, MEDICAID, SELFPAY ==
--- NOTE | 2025-02-23 12:39 | A.OFFPC_ITS ---
Vital Signs 02/23/25 12:40 Height 5 ft 3 in Weight 140 lb 6 oz BMI 24.9 BP 120/70 Blood Pressure Location Rt brachial Position Sitting Pulse 61 Pulse Source Pulse Oximeter Pulse Oximetry (%) 96 Oxygen Delivery Method Room Air Intake Visit Reasons: Annual PE Allergies lactose Allergy (Unknown, Verified 02/23/25 12:40) Unknown Medication List - Last Reconciled 02/23/25 by Oumou Liriano MD acetaminophen 500 mg PO Q6H PRN amlodipine 10 mg PO DAILY atorvastatin 10 mg PO DAILY cane As directed carvedilol 25 mg PO BID cinacalcet 30 mg PO DAILY empagliflozin (Jardiance) 10 mg PO QAM lisinopril 40 mg PO DAILY omeprazole 10 mg PO DAILY Shower Chair As directed sodium bicarbonate 1,300 mg (2 x 650 mg) PO BID sodium zirconium cyclosilicate (Lokelma) 10 grams PO DAILY tacrolimus XR (Envarsus XR) 0.75 mg PO DAILY tacrolimus XR (Envarsus XR) 2 mg (2 x 1 mg) PO DAILY Tobacco use date assessed: 02/23/25 Dental Screening Dental Screen Date: 02/23/25 Did you have a dental visit in the last 12 months?: Yes Did you have a dental problem in the last 6 months where you did not have access to dental care?: No Was dental information given to patient?: Patient has dentist HPI Annual PE HPI Details PE apt - The patient is a 59-year-old male pres enting for a wellness visit and management of ongoing health conditions. - Patient has chronic kidney disease , h e is a Kidney transplant patient, with a creatinine of 1.42, which shows slight worsening from previous test results in November. establish with Nephrology [facility] - History of gangrene in left second toe , previously requiring management, formerly symptomatic with significant pain, now stable but enduring residual discomfort impacting mobility. requesting Podiatary ref - Reports herniated disc affecting the s ciatic nerve, causing persistent pain exacerbated by sitting. - Patient has previously been managing h ypertension successfully with significant weight loss. colonoscopy ref was placed last year but patient never went he is requesting cologard instead Health Maintenance - Colon cancer screening discussed, prakash ent declined colonoscopy but agreed to complete Cologuard at-home test. - Hypertension management noted with sig nificant weight loss. - Kidney function monitoring via creatin ine levels. - Encouragement of weight management and fasting practices noted. Diagnostic results - Labs: Hemoglobin 13.4, Potassium 5.2, Creatinine 1.42. Patient Instructions - Complete the Cologuard test for colore ctal cancer screening and submit it per the instructions provided. - Appointment to be scheduled with [facility] for persistent toe discomfort. - Continue current lifestyle practices i ncluding weight management and fasting. Review of Systems - General: No fever no chills - Neurological: No headaches no dizzin ess - Ear nose throat: No sore throat no hearing difficulty no ear pain - Cardiovascular: No syncope, no chest pain, no palpitations - Gastrointestinal: No nausea vomiting or diarrhea - Endocrine: No polyuria polydipsia no heat intolerance - Genitourinary: No dysuria - Skin: No new complaints Physical Exam General: Cooperative, healthy appearing, comfortable, no acute distress Orientation: Patient oriented x3 Head: Normal to inspection Ears: Within normal limit visually Nose: Normal external nose present Face and sinus: Normal facial exam Eyes: Appearance normal, extraocular movement intact pupils reactive Neck: Normal visual inspection and supple Respiratory: Normal respiratory effort and able to speak in complete sentences. Clear to auscultation, no stridor Cardiovascular: S1 and S2 RRR GI: Normal to inspection. Soft to palpation and nontender Skin: Turgor normal, no acute findings Neuro: Patient oriented x3, motor sensory intact, balance intact, tandem pass Extremities: Normal to inspection, except for left second toe with history of gangrene, currently looks okay but patient reports pain and difficulty walking due to knee issues. 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 Mother No problems noted. Sister HTN (hypertension) CVD (cardiovascular disease) Myocardial infarction Cancer Maternal Grandmother Cancer Maternal Grandfather No problems noted. Paternal Grandfather Unknown family medical history Paternal Grandmother Unknown family medical history Sister No problems noted. Brother No problems noted. Brother Substance use disorder Son No problems noted. Daughter No problems noted. Social History Housing: Apartment Alcohol intake: never Patient Tobacco Use Status: Former Tobacco user Cigarettes Per Day: 3 Years Smoked: 12 years e-Cigarette/Vaping Use: Never Used service: No Current occupational status: retired and disabled Cognitive needs: No Hearing needs: No Vision needs: No Questionnaire PHQ-9 Over the last 2 weeks, how often have you been bothered by any of the following problems? 1. Little interest or pleasure in doing things: not at all 2. Feeling down, depressed, or hopeless: not at all 3. Trouble falling or staying asleep, or sleeping too much: not at all 4. Feeling tired or having little energy: more than half the days 5. Poor appetite or overeating: more than half the days 6. Feeling bad about yourself - or that you are a failure or have let yourself or your family down: not at all 7. Trouble concentrating on things, such as reading the newspaper or watching television: not at all 8. Moving or speaking so slowly that other people could have noticed. Or the opposite - being so fidgety or restless that you have been moving around a lot more than usual: not at all 9. Thoughts that you would be better off or of hurting yourself in some way: not at all Total score: 4 Depression Screening Interpretation: Negative Depression Screening Done: Yes 72552 - PHQ-9 Billing: Yes Source: Developed by Drs. Jena-Paul Amato, Phuong Mckeon, Rafy Connell and colleagues, with an educational bobby from [employer]. Thrive Questionnaire Date Thrive assessed: 02/23/25 I am a: Patient What is your living situation today?: I have a steady place to live Within the past 12 months, did the food you bought not last and you didn't have the money to get more?: Sometimes True Within the past 12 months, did you worry whether your food would run out before you got money to buy more?: Often true Do you have trouble paying for medicines?: No Do you have trouble getting transportation to medical appointments?: No Do you have trouble paying your heating and electricity bill?: No Do you have trouble taking care of your child, family member or friend?: No Do you have trouble with day-to-day activities such as bathing, preparing meals, shopping, managing finances, etc.?: Yes Are you currently unemployed and looking for a job?: No Are you interested in more education?: Yes Please select the resources that you would like help with: Housing/Skilled Nursing and Utilities Currently or been in a relationship where the following occur: I choose not to answer THRIVE Score: 2 AUDIT C Alcohol Use Questionnaire (AUDIT-C) 1. How often do you have a drink containing alcohol?: Never 3. How often do you have six or more drinks on one occasion?: Never Total Score: 0 Score Reviewed/Action Taken: Yes TEA-7 AMB Questionnaire TEA-7 Date TEA - 7 assessed: 02/23/25 Feeling nervous, anxious, or on edge: 0 = Not at all Not being able to stop or control worryin = Not at all Worrying too much about different things: 1 = Several days Trouble relaxin = Not at all Being so restless that it is hard to sit still: 0 = Not at all Becoming easily annoyed or irritable: 1 = Several days Feeling afraid as if something awful might happen: 0 = Not at all Total TEA-7 score (0-4 normal; 5-9 mild; 10-14 moderate; 15-21 severe): 2 Source: Developed by Drs. Jean-Paul Amato, Phuong Mckeon, Rafy Connell and colleagues, with an educational bobby from [employer]. TEA-7 Assessment Billing TEA-7 Assessment Tool: TEA-7 Assessment 62919 Physical exam (Primary Care) Vital Signs: Last Vital Signs Pulse 61 02/23/25 12:40 BP 120/70 02/23/25 12:40 Pulse Ox 96 02/23/25 12:40 Oxygen Delivery Method Room Air 02/23/25 12:40 BMI result Body Mass Index 24.9 Tobacco/Smoking Status: Tobacco use Status Tobacco use date assessed 02/23/25 02/23/25 12:40 Patient Tobacco Use Status Former Tobacco user 02/23/25 12:40 Tobacco use type 04/23/24 14:54 e-Cigarette/Vaping Use Never Used 02/23/25 12:40 PHQ-9: PHQ-9 Score PHQ-9: Total score 4 02/23/25 12:40 Depression Screening Interpretation: Negative Thrive Assessment: Date of Thrive Assessment Date Thrive assessed 09/02/23 02/23/25 12:40 Currently or been in a relationship where the following occur: I choose not to answer Coding Level of Care Code Est Pt Level 3 (71526) Est Pt Prev Care 40-64y(94455) Diagnoses Encounter for general adult medical examination with abnormal findings Z00.01 Toe pain, left M79.675 Renal transplant, status post Z94.0 Lumbar spondylosis M47.816 Additional Codes TEA-7 Assessment Billing - TEA-7 Assessment Tool: TEA-7 Assessment 73000 ([id number]) PHQ-9 - 10571 - PHQ-9 Billing: Yes ([id number]) Assessment & Plan Assessment & Plan (1) Encounter for general adult medical examination with abnormal findings: Code(s): Z00.01 - Encounter for general adult medical examination with abnormal findings Category: Medical (2) Toe pain, left: Code(s): M79.675 - Pain in left toe(s) Category: Medical (3) Renal transplant, status post: Comment: Transplant date 06/06/2021. Induction with [facility] Maintain with tacrolimus. Baseline creatinine 1.5. Code(s): Z94.0 - Kidney transplant status Category: Surgical (4) Lumbar spondylosis: Code(s): M47.816 - Spondylosis without myelopathy or radiculopathy, lumbar region Category: Medical Plan PE apt - The patient is a 59-year-old male presenting for a wellness visit and management of ongoing health conditions. - Patient has chronic kidney disease , he is a Kidney transplant patient, with a creatinine of 1.42, which shows slight worsening from previous test results in November. establish with Nephrology [facility] - History of gangrene in left second toe, previously requiring management, formerly symptomatic with significant pain, now stable but enduring residual discomfort impacting mobility. requesting Podiatary ref - Reports herniated disc affecting the sciatic nerve, causing persistent pain exacerbated by sitting. - Patient has previously been managing hypertension successfully with significant weight loss. colonoscopy ref was placed last year but patient never went he is requesting cologard instead Health Maintenance - Colon cancer screening discussed, patient declined colonoscopy but agreed to complete Cologuard at-home test. - Hypertension management noted with significant weight loss. - Kidney function monitoring via creatinine levels. - Encouragement of weight management and fasting practices noted. Diagnostic results - Labs: Hemoglobin 13.4, Potassium 5.2, Creatinine 1.42. Patient Instructions - Complete the Cologuard test for colorectal cancer screening and submit it per the instructions provided. - Appointment to be scheduled with [facility] for persistent toe discomfort. - Continue current lifestyle practices including weight management and fasting. Orders: Referrals Cologuard Test Z12.11 - Encounter for screening for malignant neoplasm of colon Podiatry Referral M41.900 - Pain in left toe(s)
[2025-02-23 12:40] VITALS: BP 120/70; PULSE 61; O2SAT 96; BMI 24.9
--- OUTSIDE RECORDS SUMMARY | 2025-02-23 13:52 | XMS_ITS | Encounter Summary ---
Author Organization [facility] Address [address] [facility] [address] [place] [address] Phone Care Team Providers Care Nail Making Machine Tender Name Role Phone Oumou Liriano MD Primary Care Provider [phone] Reason for Visit * Reason Onset Date Comments Med Refill 06/04/2021 Encounter Details Date Type Department Care Team (Late st Contact Info) Description 06/04/2021 [facility]ill [facility] [address] [place] [address] Clarisa Fuentes, LESLIE [address] [facility] [address] [place] [address] Social History Tobacco Use Types [...] on filedocumented in this encounter Care Teams Nail Making Machine Tender Relationship Specialty Start Date End Date Oumou Liriano MD [place] [address] PCP - General 08/31/19 documented as of this encounter
--- OUTSIDE RECORDS SUMMARY | 2025-02-23 13:52 | XMS_ITS | Clinical Summary ---
Author Organization [facility] Address [address] [facility] [address] [place] [address] Phone Care Team Providers Care Compensation Director Name Role Phone Oumou Liriano MD Primary Care Provider [phone] Allergies Active Allergy Reactions Criticality Noted Date [...] (one) time each day 30 tablet 11 03/27/2 024 Active ezetimibe (ZETIA) 10 MG tablet Take 1 tablet (10 mg total) by mouth 1 (one) time each day 90 tablet 3 024 Active lisinopril 40 MG tablet Take 1 tablet (40 mg total) by mouth 1 (one) time each day 90 tablet 3 024 Active Calcifediol ER (Rayaldee) 30 MCG capsule [...] intolerance 03/09/2018 01/25/20 22 Hypercholesterolemia 03/09/2018 022 Encounters Date Type Department Care Team Description 01/25/2025 Refill [facility] [address] [facility] [address] [place] [id number] Barbara Mayers from Last 3 Months Immunizations [...] Blood, Stool #1 Negative Negative APS SPECTRA ATHLETIC COORDINATOR Comment:Performed by Guaiac Method. Occult Blood, Stool #2 Negative Negative APS SPECTRA ATHLETIC COORDINATOR Comment:Performed by Guaiac Method. Occult Blood, Stool #3 Negative Negative APS SPECTRA ATHLETIC COORDINATOR Comment:Performed by Guaiac Method. Collection Time 1,100 APS SPECTRA ATHLETIC COORDINATOR Panel Comments Specimen source: Occult Blood Card APS SPECTRA ATHLETIC COORDINATOR 01/13/2019 us Jamal Dinh MD LAB BODY FLUIDS AND STOOLS EITAN GARCIA Final Result APS SPECTRA ATHLETIC COORDINATOR from Last 3 Months or Most Recently Relevant to Health Maintenance Insurance Medicare Medicaid [place] Medicare Care Teams Compensation Director Relationship Specialty Start Date End Date Oumou Liriano MD [address] [place] [address] PCP - General 08/31/19
--- OUTSIDE RECORDS SUMMARY | 2025-02-23 13:52 | XMS_ITS | Clinical Summary ---
Author Organization [facility] Address [address] [place] [address] Care Team Providers Care Plater Hot Dip Name Role Phone Pcp, No Primary Care [...] Done Comments Hepatitis C Virus Screening 1963 HIV Screening 1976 DTaP/Tdap/Td Vaccines (1 - [...] age to complete this topic Insurance [address] [place] [address] MEDICARE PART A & B Care Teams Plater Hot Dip Relationship Specialty Start Date End Date Pcp, No [address] [place] [address] PCP - General 01/21/22
== END 2025-02-23 14:13 | disposition home or self-care (01) ==
LOC: HO.HMCC 12:39
PROVIDERS: PCP Internal Medicine; Visit Provider Internal Medicine
DX: Z00.01 Encounter for general adult medical examination with abnormal findings (principal); M79.675 Pain in left toe(s); Z94.0 Kidney transplant status; M47.816 Spondylosis without myelopathy or radiculopathy, lumbar region

== ENCOUNTER → 2025-02-23 12:38 | Outpatient (BNVA) | payer MEDICARE, MEDICAID, SELFPAY | PROVIDERS: PCP Internal Medicine; Visit Provider Internal Medicine | DX: Z00.01 Encounter for general adult medical examination with abnormal findings (principal); M79.675 Pain in left toe(s); M47.816 Spondylosis without myelopathy or radiculopathy, lumbar region; Z94.0 Kidney transplant status | CPT/HCPCS: 96127; 99212; 99396 ==

== ENCOUNTER → 2025-03-07 14:42 | Outpatient (BNVA) | payer MEDICARE, MEDICAID, SELFPAY | PROVIDERS: PCP Internal Medicine ==

== ENCOUNTER 2025-05-23 11:38 | Outpatient (REF) | payer MEDICARE, MEDICAID, SELFPAY ==
--- OUTSIDE RECORDS SUMMARY | 2025-05-23 12:55 | XMS_ITS | Clinical Summary ---
Author Organization [facility] Address [address] [place] [address] Care Team Providers Care Rn Urgent Care Name Role Phone Pcp, No Primary Care [...] Zoster (Shingles) Vaccine (1 of 2) 2013 COVID-19 Vaccine (3 - 2023-2 5 season) 2024 05/10/2021, 04/17/2021 Influenza Vaccine 05/27/2025 RSV Vaccine 60 years and older and Patients (1 - 1-dose 75+ series) 2038 Hepatitis B Vaccines Aged Out No long er eligible based on patient's age to complete this topic Insurance [address] [id number] MEDICARE PART A & B Care Teams Rn Urgent Care Relationship Specialty Start Date End Date Pcp, No [address] [place] [address] PCP - General 01/21/22
--- OUTSIDE RECORDS SUMMARY | 2025-05-23 12:55 | XMS_ITS | Encounter Summary ---
Author Organization [facility] Address [address] [facility] [address] [place] [address] Phone Care Team Providers Care Furnace Process Supervisor Name Role Phone Oumou Liriano MD Primary Care Provider [phone] Reason for Visit * Reason Onset Date Comments Med Refill 06/04/2021 Encounter Details Date Type Department Care Team (Late st Contact Info) Description 06/04/2021 Refill [facility] [address] [place] [address] Clarisa Fuentes RN [address] [facility] [address] [place] [address] Social History Tobacco Use Types [...] on filedocumented in this encounter Care Teams Furnace Process Supervisor Relationship Specialty Start Date End Date Oumou Liriano MD [facility] [place] [address] PCP - General 08/31/19 documented as of this encounter
--- OUTSIDE RECORDS SUMMARY | 2025-05-23 12:55 | XMS_ITS | Patient Health Record ---
Author Organization [facility] Address [address] [place] [address] Care Team Providers Care Rural Carrier Associate Name Role Phone Heri BOSWELL, Asma Primary Care Provider Judah Naqvi Jr Unavailable [phone] Allergies Allergen (clinical drug ingredient) Drug/Non Drug [...] wice a day/prn/nausea Active Vitamin D (Ergocalciferol) 62030 UNIT 1 capsule Orally once a week [...] Problem Status W/U Status Risk Notes Problem [id number] Weight loss (R63.4) Active confirmed Problem [id number] Anemia, unspecified type (D64.9) Active confirmed Plan Of Treatment Future Test Test Name Order Date UPPER GI ENDOSCOPY 01/28/2019 COLONOSCOPY 01/28/2019 Insurance Providers Payer Name Payer Address Payer Phone Subscriber Number Group Number Insured Name Patient Relationship to Insured Coverage Start Date Coverage End Date MEDICARE OF [place] [address] JOSE ALFREDO LOVELLSAÚL [id number] KENDY BANKS Self - patient is the insured MEDICAID OF [facility] [address] [place] [address] [id number] KENDY BANKS Self - patient is the [...]
--- OUTSIDE RECORDS SUMMARY | 2025-05-23 12:55 | XMS_ITS | Clinical Summary ---
Author Organization [address] [facility] Address [address] [place] [address] Phone Care Team Providers Care Fireman Helper Name Role Phone Oumou Liriano MD Primary Care Provider [phone] Social History Tobacco Use Types Packs/Day Years Used Date Smoking Tobacco: Never Assessed Sex and Gender Information Value Date Recorded Sex Assigned at Not on file Legal Sex Male 2:52 PM EST Gender Identity Not on file Sexual Orientation Not on file Plan of Treatment Upcoming Encounters Date Type Department Care Team ([facility] Contact Info) Description 07/25/2025 2:45 PM EDT Consult Orthopedic Surgery [facility] [address] [address] Nito Del Valle, DPM [address] [address] Health Maintenance Due Date Last Done Comments DTaP,Tdap,and Td Vaccines (1 - Tdap) 1982 Pneumococcal Vaccine: 50+ Ye ars (1 of 1 - PCV) 2013 Zoster Vaccines (1 of 2) 2013 COVID-19 Vaccine ( - 2023-2 5 season) 2024 Depression Screening 10/27/2024 Cholesterol Screening (Lipid Panel) 03/05/2025 Colorectal Cancer Screening: Colonoscopy 03/05/2025 HIV Screening 03/05/2025 Hepatitis C Screening 03/05/2025 Medicare Annual Wellness Visit 03/05/2025 Social Influencers of Health Screening 03/05/2025 Influenza Vaccine (#1) 2025 RSV Immunization Adult Patie nts (1 - 1-dose 75+ series) 2038 HIB Vaccines Aged Out No longer eligi ble based on patient's age to complete this topic HPV Vaccines Aged Out No longer eligi ble based on patient's age to complete this topic Hepatitis A Vaccines Aged Out No long er eligible based on patient's age to complete this topic Hepatitis B Vaccines Aged Out No long er eligible based on patient's age to complete this topic IPV Vaccines Aged Out No longer eligi ble based on patient's age to complete this topic MMR Vaccines Aged Out No longer eligi ble based on patient's age to complete this topic Meningococcal ACWY Vaccine Aged Out N o longer eligible based on patient's age to complete this topic Meningococcal B Vaccine Aged Out No l onger eligible based on patient's age to complete this topic RSV Immunization Patients Un armando 20 months Aged Out No longer eligible b ased on patient's age to complete this topic Varicella Vaccines Aged Out No longer eligible based on patient's age to complete this topic Insurance MEDICA[place] - [place] MEDICARE Care Teams Fireman Helper Relationship Specialty Start Date End Date Oumou Liriano MD [address] [place] [address] PCP - General Internal Medicine 03/05/25
== END 2025-05-23 11:39 | disposition home or self-care (01) ==
LOC: HO.HKASLDS 11:38
PROVIDERS: Visit Provider Internal Medicine Hypertension Specialist
DX: Z13.89 Encounter for screening for other disorder (principal)

== ENCOUNTER 2025-05-25 09:15 | Outpatient (AMB) | payer MEDICARE, MEDICAID, SELFPAY ==
[2025-05-25 09:16] VITALS: BP 124/78; PULSE 69; O2SAT 96; BMI 23.9
--- NOTE | 2025-05-25 09:16 | HO.NEPHOV ---
Vital Signs 05/25/25 09:16 Height 5 ft 3 in Weight 135 lb BMI 23.9 BP 124/78 Blood Pressure Location Lt brachial Position Sitting Pulse 69 Pulse Source Pulse Oximeter Pulse Oximetry (%) 96 Oxygen Delivery Method Room Air Intake Visit Reasons: 3mon follow-up Conf Pickle Water Pump Operator Required: No Accompanied by: Self / Same As Patient Allergies lactose Allergy (Unknown, Verified 05/25/25 09:18) Unknown Medication List - Last Reconciled 05/25/25 by Jason Goldstein MD acetaminophen 500 mg PO Q6H PRN amlodipine 10 mg PO DAILY atorvastatin 10 mg PO DAILY cane As directed carvedilol 25 mg PO BID cinacalcet 30 mg PO DAILY empagliflozin (Jardiance) 10 mg PO QAM lisinopril 40 mg PO DAILY omeprazole 10 mg PO DAILY Shower Chair As directed sodium bicarbonate 1,300 mg (2 x 650 mg) PO BID sodium zirconium cyclosilicate (Lokelma) 10 grams PO DAILY tacrolimus XR (Envarsus XR) 0.75 mg PO DAILY tacrolimus XR (Envarsus XR) 2 mg (2 x 1 mg) PO DAILY HPI Comments Details: Middle-aged man with 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 He underwent kidney transplant 2 years ago. Date of transplant 06/06/2021. 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 Current modality renal transplant Campath induction Maintenance with tacrolimus. Patient creatinine 1.5. No history of rejection. He was previously seen by Dr. Fagan for transplant follow-up. Since her exit from [facility] he wants to switch care to us. He is concerned about taking multiple medications. Today he has no specific complaints. 06/16/24;No new issues today 07/14/2024. ; Recently he was in emergency room because of pain in the AV fistula. Ultrasound was done and there was no clots. No evidence of infection. He has been referred to the vascular surgeon. 09/15/24 ;Had diarrhea last month; Resolved. 12/22/24 ; Lost 10 lbs with exercise; Takes Lokelma ;Admits to eating K rich food 02/09/25;Overall doing well. No new issues 05/25/25: c/o back pain. 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 Mother No problems noted. Sister HTN (hypertension) CVD (cardiovascular disease) Myocardial infarction Cancer Maternal Grandmother Cancer Maternal Grandfather No problems noted. Paternal Grandfather Unknown family medical history Paternal Grandmother Unknown family medical history Sister No problems noted. Brother No problems noted. Brother Substance use disorder Son No problems noted. Daughter No problems noted. Social History Housing: Apartment Alcohol intake: never Patient Tobacco Use Status: Former Tobacco user Cigarettes Per Day: 3 Years Smoked: 12 years e-Cigarette/Vaping Use: Never Used service: No Current occupational status: retired and disabled Cognitive needs: No Hearing needs: No Vision needs: No Physical Exam Vital Signs: Last Vital Signs Pulse 69 05/25/25 09:16 Pulse Ox 96 05/25/25 09:16 Oxygen Delivery Method Room Air 05/25/25 09:16 BMI result Body Mass Index 23.9 Comfortable Neck supple no JVD. Lungs entry equal no rales. Heart S1-S2 heard no gallop or rub. Abdomen soft nontender. Neuro alert awake oriented. No asterixis. Extremities no edema. Results Reviewed Nephrology Results: Sodium, (135-145) 145 mmol/L 02/08/25 Potassium, (3.3-5.1) 5.2 mmol/L H 02/08/25 Chloride, (96-108) 118 mmol/L H 02/08/25 Carbon Dioxide, (22-29) 18 mmol/L L 02/08/25 BUN, (9-16) 35 mg/dL H 02/08/25 Creatinine, (0.5-1.4) 1.42 mg/dL H 02/08/25 Calcium, (8.4-10.2) 9.3 mg/dL Δ 02/08/25 PTH Intact, (8.7-77.1) 269.1 pg/mL H 02/08/25 Assessment & Plan Assessment & Plan (1) Renal transplant, status post: Comment: Transplant date 06/06/2021. Induction with Campath Maintain with tacrolimus. Baseline creatinine 1.5. Code(s): Z94.0 - Kidney transplant status Category: Surgical (2) Hypertension, essential: Code(s): I10 - Essential (primary) hypertension Category: Medical Plan: Blood pressure is better controlled Continue with current regimen Stay on low-sodium diet Monitor blood pressure closely. (3) Lumbar back pain with radiculopathy affecting left lower extremity: Code(s): M54.16 - Radiculopathy, lumbar region Category: Medical Plan He has had mild hyperkalemia with metabolic acidosis. Increased sodium bicarbonate 1300 mg BID Lokelma 10 gm 3x week Dyslipidemia He is on atorvastatin 80 mg along with the Zetia. Was held last month Monitor for secondary hyperparathyroidism. Ca and PTH elevated Restarted cinacalcet 30 QD PTH at 113 Try Lidoderm patch for back pain Orders: Orders Comprehensive Met. Panel 3 Months M54.16 - Radiculopathy, lumbar region, Z94.0 - Kidney transplant status Parathyroid Hormone Intact 3 Months M54.16 - Radiculopathy, lumbar region, Z94.0 - Kidney transplant status Total Protein Urine Random 3 Months M54.16 - Radiculopathy, lumbar region, Z94.0 - Kidney transplant status Tacrolimus Prograf 3 Months Z94.0 - Kidney transplant status Complete Blood Count no Diff 3 Months M54.16 - Radiculopathy, lumbar region, Z94.0 - Kidney transplant status Phosphorus 3 Months M54.16 - Radiculopathy, lumbar region, Z94.0 - Kidney transplant status Creatinine Urine 3 Months M54.16 - Radiculopathy, lumbar region, Z94.0 - Kidney transplant status Medications: New lidocaine 5% (Lidoderm) leave on painful area for up to 12 hrs 1 patch topical DAILY PRN 30 ea 0RF pain Coding Level of Care Code Est Pt Level 4 (16049) Diagnoses Renal transplant, status post Z94.0 Hypertension, essential I10 Lumbar back pain with radiculopathy affecting left lower extremity M54.16
--- OUTSIDE RECORDS SUMMARY | 2025-05-25 09:44 | XMS_ITS | Clinical Summary ---
Author Organization [facility] Address [address] [place] [address] Care Team Providers Care Medical Instrument Technician Name Role Phone Pcp, No Primary Care [...] age to complete this topic Insurance [address] [place] [address] MEDICARE PART A & B Care Teams Medical Instrument Technician Relationship Specialty Start Date End Date Pcp, No [address] [place] [address] PCP - General 01/21/22
--- OUTSIDE RECORDS SUMMARY | 2025-05-25 09:44 | XMS_ITS | Patient Health Record ---
Author Organization [facility] Address [address] [place] [address] Care Team Providers Care Rebrander Name Role Phone Heri BOSWELL, Asma Primary Care Provider Judah Naqvi Jr Unavailable Allergies Allergen (clinical drug ingredient) Drug/Non Drug [...] wice a day/prn/nausea Active Vitamin D (Ergocalciferol) 06138 UNIT 1 capsule Orally once a week [...] Problem Status W/U Status Risk Notes Problem 86634463 Weight loss (R63.4) Active confirmed Problem [id number] Anemia, unspecified type (D64.9) Active confirmed Plan Of Treatment Future Test Test Name Order Date UPPER GI ENDOSCOPY 01/28/2019 COLONOSCOPY 01/28/2019 Insurance Providers Payer Name Payer Address Payer Phone Subscriber Number Group Number Insured Name Patient Relationship to Insured Coverage Start Date Coverage End Date MEDICARE OF [place] [address] JOSE ALFREDO LOVELLSAÚL [id number] KENDY BANKS Self - patient is the insured MEDICAID OF [facility] [address] [place] [address] [id number] KENDY BANKS Self - patient is the [...]
--- OUTSIDE RECORDS SUMMARY | 2025-05-25 09:44 | XMS_ITS | Encounter Summary ---
Author Organization [facility] Address [address] [facility] [address] [place] [address] Phone Care Team Providers Care Associate Oracle Retail Name Role Phone Oumou Liriano MD Primary Care Provider [phone] Reason for Visit * Reason Onset Date Comments Med Refill 06/04/2021 Encounter Details Date Type Department Care Team (Late st Contact Info) Description 06/04/2021 Refill [facility] [address] [place] [address] Clarisa Fuentes, LESLIE 100 [facility] [address] [place] [address] Social History Tobacco Use Types [...] on filedocumented in this encounter Care Teams Associate Oracle Retail Relationship Specialty Start Date End Date Oumou Liriano MD [place] [address] PCP - General 08/31/19 documented as of this encounter
--- OUTSIDE RECORDS SUMMARY | 2025-05-25 09:44 | XMS_ITS | Clinical Summary ---
Author Organization [facility] Address [address] [place] [address] Phone Care Team Providers Care Fbi Special Agent Name Role Phone Oumou Liriano MD Primary Care Provider [phone] Social History Tobacco Use Types Packs/Day Years Used Date Smoking Tobacco: Never Assessed Sex and Gender Information Value Date Recorded Sex Assigned at Not on file Legal Sex Male 2:52 PM EST Gender Identity Not on file Sexual Orientation Not on file Plan of Treatment Upcoming Encounters Date Type Department Care Team ([facility] Contact Info) Description 07/25/2025 2:45 PM EDT Consult Orthopedic Surgery [facility] [address] [address] Nito Del Valle, DPM [address] [address] Health Maintenance Due Date Last Done Comments [...] Insurance MEDICA[place] - [place] MEDICARE Care Teams Fbi Special Agent Relationship Specialty Start Date End Date Oumou Liriano MD [address] [place] [address] PCP - General Internal Medicine 03/05/25
== END 2025-05-25 09:40 | disposition home or self-care (01) ==
LOC: HO.HKAS 09:15
PROVIDERS: PCP Internal Medicine; Visit Provider Internal Medicine Hypertension Specialist
DX: Z94.0 Kidney transplant status (principal); I10 Essential (primary) hypertension; M54.16 Radiculopathy, lumbar region
CPT/HCPCS: 99214

== ENCOUNTER → 2025-05-25 09:15 | Outpatient (BNVA) | payer MEDICARE, MEDICAID, SELFPAY | PROVIDERS: PCP Internal Medicine; Visit Provider Internal Medicine Hypertension Specialist | DX: I10 Essential (primary) hypertension (principal); M54.16 Radiculopathy, lumbar region; Z94.0 Kidney transplant status | CPT/HCPCS: 99212 ==

== ENCOUNTER 2025-07-20 10:06 | Outpatient (AMB) | payer MEDICARE, MEDICAID, SELFPAY ==
--- NOTE | 2025-07-20 10:23 | HO.NEPHOV_ITS ---
Vital Signs 07/20/25 10:24 Height 5 ft 3 in Weight 137 lb BMI 24.3 BP 128/72 Blood Pressure Location Rt brachial Position Sitting Intake Visit Reasons: 2 months F/U-Conf Road Manager Required: No Accompanied by: Self / Same As Patient Allergies lactose Allergy (Unknown, Verified 07/20/25 10:27) Unknown Medication List - Last Reconciled 07/20/25 by Jason Goldstein MD acetaminophen 500 mg PO Q6H PRN amlodipine 10 mg PO DAILY atorvastatin 10 mg PO DAILY cane As directed carvedilol 25 mg PO BID cinacalcet 30 mg PO DAILY empagliflozin (Jardiance) 10 mg PO QAM lidocaine 5% (Lidoderm) 1 patch topical DAILY PRN lisinopril 40 mg PO DAILY omeprazole 10 mg PO DAILY Shower Chair As directed sodium bicarbonate 1,300 mg (2 x 650 mg) PO BID sodium zirconium cyclosilicate (Lokelma) 10 grams PO DAILY tacrolimus XR (Envarsus XR) 0.75 mg PO DAILY tacrolimus XR (Envarsus XR) 2 mg (2 x 1 mg) PO DAILY HPI Comments Details: Middle-aged man with 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 He underwent kidney transplant 2 years ago. Date of transplant 06/06/2021. 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 Current modality renal transplant Campath induction Maintenance with tacrolimus. Patient creatinine 1.5. No history of rejection. He was previously seen by Dr. Fagan for transplant follow-up. Since her exit from [facility] he wants to switch care to us. He is concerned about taking multiple medications. Today he has no specific complaints. 06/16/24;No new issues today 07/14/2024. ; Recently he was in emergency room because of pain in the AV fistula. Ultrasound was done and there was no clots. No evidence of infection. He has been referred to the vascular surgeon. 09/15/24 ;Had diarrhea last month; Resolved. 12/22/24 ; Lost 10 lbs with exercise; Takes Lokelma ;Admits to eating K rich food 02/09/25;Overall doing well. No new issues 05/25/25: c/o back pain. 07/20/25 - The patient is a 59-year-old male presenting with a follow-up regarding his kidney transplant. - Kidney transplant three years ago; on tacrolimus. - Desires medication reduction as kidney function improves. - Hemoglobin 13.4, cholesterol 153 mg/dL, LDL 83 mg/dL. - Weight management through fasting; improved blood pressure. - Chronic back pain, worsened by cold; moved to warmer location. - Regular exercise, core strengthening for back pain relief. - Hyperparathyroidism with PTH 105, improved from prior. 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 Mother No problems noted. Sister HTN (hypertension) CVD (cardiovascular disease) Myocardial infarction Cancer Maternal Grandmother Cancer Maternal Grandfather No problems noted. Paternal Grandfather Unknown family medical history Paternal Grandmother Unknown family medical history Sister No problems noted. Brother No problems noted. Brother Substance use disorder Son No problems noted. Daughter No problems noted. Social History Housing: Apartment Alcohol intake: never Patient Tobacco Use Status: Former Tobacco user Cigarettes Per Day: 3 Years Smoked: 12 years e-Cigarette/Vaping Use: Never Used service: No Current occupational status: retired and disabled Cognitive needs: No Hearing needs: No Vision needs: No Physical Exam Vital Signs: Last Vital Signs BP 128/72 07/20/25 10:24 BMI result Body Mass Index 24.3 Comfortable Neck supple no JVD. Lungs entry equal no rales. Heart S1-S2 heard no gallop or rub. Abdomen soft nontender. Neuro alert awake oriented. No asterixis. Extremities no edema. Results Reviewed Nephrology Results: Sodium, (135-145) 145 mmol/L 02/08/25 Potassium, (3.3-5.1) 5.2 mmol/L H 02/08/25 Chloride, (96-108) 118 mmol/L H 02/08/25 Carbon Dioxide, (22-29) 18 mmol/L L 02/08/25 BUN, (9-16) 35 mg/dL H 02/08/25 Creatinine, (0.5-1.4) 1.42 mg/dL H 02/08/25 Calcium, (8.4-10.2) 9.3 mg/dL Δ 02/08/25 PTH Intact, (8.7-77.1) 269.1 pg/mL H 02/08/25 Assessment & Plan Assessment & Plan (1) Renal transplant, status post: Comment: Transplant date 06/06/2021. Induction with Campath Maintain with tacrolimus. Baseline creatinine 1.5. Code(s): Z94.0 - Kidney transplant status Category: Surgical Plan: Renal fx stable Recheck today (2) Hypertension, essential: Code(s): I10 - Essential (primary) hypertension Category: Medical Plan: Blood pressure is better controlled Continue with current regimen Stay on low-sodium diet Monitor blood pressure closely. (3) Lumbar back pain with radiculopathy affecting left lower extremity: Code(s): M54.16 - Radiculopathy, lumbar region Category: Medical Plan He has had mild hyperkalemia with metabolic acidosis. Increased sodium bicarbonate 1300 mg BID Lokelma 10 gm 3x week REcheck today Dyslipidemia He is on atorvastatin 80 mg along with the Zetia. TG elevated- cut down carbs Monitor for secondary hyperparathyroidism. Ca and PTH elevated Restarted cinacalcet 30 QD PTH at 113 Orders: Orders Basic Metabolic Panel Today T86.91 - Unspecified transplanted organ and tissue rejection Basic Metabolic Panel 3 Months Z94.0 - Kidney transplant status Coding Level of Care Code Est Pt Level 4 (54206) Diagnoses Renal transplant, status post Z94.0 Hypertension, essential I10 Lumbar back pain with radiculopathy affecting left lower extremity M54.16
[2025-07-20 10:24] VITALS: BP 128/72; BMI 24.3
--- OUTSIDE RECORDS SUMMARY | 2025-07-20 12:23 | XMS_ITS | Clinical Summary ---
Author Organization [facility] Address [address] [place] [address] Care Team Providers Care Business Banking Relationship Manager Name Role Phone Pcp, No Primary Care [...] Vaccine (1 of 2) 2013 Influenza Vaccine 05/27/2025 COVID-19 Vaccine (3 - 2024-2 6 season) 2025 05/10/2021, 04/17/2021 RSV Vaccine 60 years and older and Patients (1 - 1-dose 75+ series) 2038 Hepatitis B Vaccines Aged Out No long er eligible based on patient's age to complete this topic Insurance [address] [address] MEDICARE PART A & B Care Teams Business Banking Relationship Manager Relationship Specialty Start Date End Date Pcp, No [address] [place] [address] PCP - General 01/21/22
--- OUTSIDE RECORDS SUMMARY | 2025-07-20 12:23 | XMS_ITS | Patient Health Record ---
Author Organization [facility] Address [address] [place] [address] Care Team Providers Care Credit Rating Inspector Name Role Phone Heri BOSWELL, Asma Primary [...] wice a day/prn/nausea Active Vitamin D (Ergocalciferol) 12085 UNIT 1 capsule Orally once a week [...] Problem Status W/U Status Risk Notes Problem [id number] Weight loss (R63.4) Active confirmed Problem [id number] Anemia, unspecified type (D64.9) Active confirmed Plan Of Treatment Future Test Test Name Order Date UPPER GI ENDOSCOPY 01/28/2019 COLONOSCOPY 01/28/2019 Insurance Providers Payer Name Payer Address Payer Phone Subscriber Number Group Number Insured Name Patient Relationship to Insured Coverage Start Date Coverage End Date MEDICARE OF [place] [address] JOSE ALFREDO LOVELLSAÚL [id number] [phone] [id number] KENDY BANKS Self - patient is the insured MEDICAID OF [facility] [address] [place] [address] [id number] KENDY BANKS Self - patient is the [...]
--- OUTSIDE RECORDS SUMMARY | 2025-07-20 12:23 | XMS_ITS | Clinical Summary ---
Author Organization [facility] Address [address] [facility] [address] [place] [address] Phone Care Team Providers Care Spike Driver Name Role Phone Oumou Liriano MD Primary Care Provider [phone] Allergies Active Allergy Reactions Criticality Noted Date Comments Lactose Other (see comments) 10/09/2020 Medications acetaminophen-c odeine (TYLENOL #2) 300-15 MG per tablet Take 1 tablet by mouth every 4 (four) hours if needed for moderate pain 30 tablet 5 2 Active torsemide (Demadex) 10 MG tablet Take 1 tablet (10 mg total) by mouth 1 (one) time each day 30 tablet 11 2 Active docusate sodium (COLACE) 100 MG capsule TAKE ONE CAPSULE BY MOUTH 3 (THREE) TIMES A DAY NEEDED FOR CONSTIPATION 30 capsule 11 3 Active carvedilol (COREG) 25 MG tablet Take 1 tablet (25 mg total) by mouth in the morning and 1 tablet (25 mg total) in the evening. Take 1 tablet (25 mg total) by mouth twice a day.. 180 tablet 3 4 Active cinacalcet (SENSIPAR) 30 MG tablet Take 1 tablet (30 mg total) by mouth 1 (one) time each day Take 1 tablet by mouth one time each day 90 tablet 3 4 Active atorvastatin (LIPITOR) 80 MG tablet Take 1 tablet (80 mg total) by mouth at bed time 90 tablet 3 4 Active sodium bicarbonate 650 MG tablet Take 1300 mg in AM and 1950 mg oral in PM 120 tablet 5 4 Active amLODIPine (NORVASC) 10 MG tablet Take 1 tablet (10 mg total) by mouth 1 (one) time each day 30 tablet 11 4 Active ezetimibe (ZETIA) 10 MG tablet Take 1 tablet (10 mg total) by mouth 1 (one) time each day 90 tablet 3 4 Active lisinopril 40 MG tablet Take 1 tablet (40 mg total) by mouth 1 (one) time each day 90 tablet 3 4 Active Active Problems Problem Noted Date Diagnosed [...] 03/09/2018 01/25/20 22 Hypercholesterolemia 03/09/2018 022 Immunizations Immunization Administration Dates Next Due MMR [...] 72 08/16/2024 10:01 AM EDT Temperature 36.4 C (97.5 F) 08/16/2024 10:01 AM EDT Respiratory Rate - - Oxygen Saturation 98% [...] 1982 Colonoscopy (Post-Transplant Patient) 06/13/2021 Influenza Vaccine (#1) 2025 Colorectal Cancer Screening: Annual FOBT Discontinued [...] Blood, Stool #1 Negative Negative APS SPECTRA OIL LABORATORY ANALYST Comment:Performed by Guaiac Method. Occult Blood, Stool #2 Negative Negative APS SPECTRA OIL LABORATORY ANALYST Comment:Performed by Guaiac Method. Occult Blood, Stool #3 Negative Negative APS SPECTRA OIL LABORATORY ANALYST Comment:Performed by Guaiac Method. Collection Time 1,100 APS SPECTRA OIL LABORATORY ANALYST Panel Comments Specimen source: Occult Blood Card APS SPECTRA OIL LABORATORY ANALYST 01/13/2019 us Jamal Dinh MD LAB BODY FLUIDS AND STOOLS EITAN GARCIA Final Result APS SPECTRA OIL LABORATORY ANALYST from Last 3 Months or Most Recently Relevant to Health Maintenance [place] [id number] Care Teams Spike Driver Relationship Specialty Start Date End Date Oumou Liriano MD [address] [place] [address] PCP - General 08/31/19
--- OUTSIDE RECORDS SUMMARY | 2025-07-20 12:23 | XMS_ITS | Encounter Summary ---
Author Organization [facility] Address [address] [facility] [address] [place] [address] Phone Care Team Providers Care Director Of Education Name Role Phone Oumou Liriano MD Primary Care Provider [phone] Reason for Visit * Reason Onset Date Comments Med Refill 06/04/2021 Encounter Details Date Type Department Care Team (Late st Contact Info) Description 06/04/2021 Refill [facility] [address] [place] [address] Clarisa Fuentes, LESLIE 100 [facility] [address] [place] [address] Social History Tobacco Use Types [...] on filedocumented in this encounter Care Teams Director Of Education Relationship Specialty Start Date End Date Oumou Liriano MD [place] [address] PCP - General 08/31/19 documented as of this encounter
--- OUTSIDE RECORDS SUMMARY | 2025-07-20 12:23 | XMS_ITS | Clinical Summary ---
Author Organization [facility] Address [address] [place] [address] Phone Care Team Providers Care Sr. Payroll Manager Name Role Phone Oumou Liriano MD Primary Care Provider [phone] Social History Tobacco Use Types Packs/Day Years Used Date Smoking Tobacco: Never Assessed Sex and Gender Information Value Date Recorded Sex Assigned at Not on file Legal Sex Male 2:52 PM EST Gender Identity Not on file Sexual Orientation Not on file Plan of Treatment Upcoming Encounters Date Type Department Care Team ([facility] Contact Info) Description 07/25/2025 2:45 PM EDT Consult Orthopedic Surgery [place] [id number] [address] Nito Del Valle, DPM [address] [address] Health Maintenance Due Date Last Done Comments DTaP,Tdap,and Td Vaccines (1 - Tdap) 1982 Pneumococcal Vaccine: 50+ Ye ars (1 of 1 - PCV) 2013 Zoster Vaccines (1 of 2) 2013 Depression Screening 10/27/2024 Cholesterol Screening (Lipid Panel) 03/05/2025 Colorectal Cancer Screening: Colonoscopy 03/05/2025 HIV Screening 03/05/2025 Hepatitis C Screening 03/05/2025 Medicare Annual Wellness Visit 03/05/2025 Social Influencers of Health Screening 03/05/2025 COVID-19 Vaccine (1 - 4-2 5 season) 2025 Influenza Vaccine (#1) 2025 RSV Immunization Adult [...] Insurance MED[place] - [place] MEDICARE Care Teams Sr. Payroll Manager Relationship Specialty Start Date End Date Oumou Liriano MD [address] [place] [address] PCP - General Internal Medicine 03/05/25
== END 2025-07-20 10:48 | disposition home or self-care (01) ==
LOC: HO.HKAS 10:07
PROVIDERS: PCP Internal Medicine; Visit Provider Internal Medicine Hypertension Specialist
DX: Z94.0 Kidney transplant status (principal); I10 Essential (primary) hypertension; M54.16 Radiculopathy, lumbar region
CPT/HCPCS: 99214

== ENCOUNTER → 2025-07-20 10:06 | Outpatient (BNVA) | payer MEDICARE, MEDICAID, SELFPAY | PROVIDERS: PCP Internal Medicine; Visit Provider Internal Medicine Hypertension Specialist | DX: I10 Essential (primary) hypertension (principal); Z94.0 Kidney transplant status; Z87.891 Personal history of nicotine dependence; M54.16 Radiculopathy, lumbar region; E78.5 Hyperlipidemia, unspecified; E21.3 Hyperparathyroidism, unspecified | CPT/HCPCS: 99212 ==

== ENCOUNTER 2025-08-05 10:05 | Outpatient (REF) | payer MEDICARE, MEDICAID, SELFPAY ==
[2025-08-05 13:52] LABS: Anion Gap 10 (12-20); Blood Urea Nitrogen 29 mg/dL (9-16); Calcium 9.6 mg/dL (8.4-10.2); Carbon Dioxide 21 mmol/L (22-29); Chloride 115 mmol/L (96-108); Estimated Glomerular Filt Rate 53; Potassium 5.0 mmol/L (3.3-5.1); Sodium 141 mmol/L (135-145)
== END 2025-08-05 10:06 | disposition home or self-care (01) ==
LOC: HO.HKASLDS 10:05
PROVIDERS: PCP Internal Medicine; Visit Provider Internal Medicine Hypertension Specialist
DX: T86.91 Unspecified transplanted organ and tissue rejection (principal)
CPT/HCPCS: 36415; 80048

== ENCOUNTER 2025-10-11 10:55 | Outpatient (REF) | payer MEDICARE, MEDICAID, SELFPAY ==
[2025-10-11 14:18] LABS: Total Protein Urine Random 19 mg/dL (<12)
--- OUTSIDE RECORDS SUMMARY | 2025-10-11 14:27 | XMS_ITS | Clinical Summary ---
Author Organization [facility] Address [address] [place] [address] Care Team Providers Care Assistant Account Executive Name Role Phone Pcp, No Primary Care [...] 6 season) 2025 05/10/2021, 04/17/2021 RSV Vaccine 50 years and older and Patients (1 - 1-dose 75+ series) 2038 Hepatitis B Vaccines Aged Out No long er eligible based on patient's age to complete this topic Insurance [address] [place] [address] MEDICARE PART A & B Care Teams Assistant Account Executive Relationship Specialty Start Date End Date Pcp, No [address] [place] [address] PCP - General 01/21/22
--- OUTSIDE RECORDS SUMMARY | 2025-10-11 14:27 | XMS_ITS | Patient Health Record ---
Author Organization [facility] Address [address] [place] [address] Care Team Providers Care Projection Printer Name Role Phone Heri BOSWELL, Asma Primary Care Provider Judah Naqvi Jr Unavailable [phone] Allergies Allergen (clinical drug ingredient) Drug/Non Drug Allergy documented on EMR Reaction Allergy Type Onset Date Status lactose (uncoded) Unknown Allergy Ac tive Reason For Referral No Information Medications Medication SIG (Take, Route, Frequency, Duration) Notes Start Date End Date Status Aspir-81 81 MG Tablet Delayed Release 1 tablet Orally Once a day; Duration: 30 day(s) Active amLODIPine Besylate 10 MG Tablet 1 tablet Orally Once a day; Duration: 30 day(s) Active Viagra 50 MG Tablet 1 tablet as needed O rally as directed Active Colyte w Flavor Packs 240 GM Solution Reconstituted as directed Orally as directed; Duration: 1 day(s) 04/13/2019 Active Omeprazole 20 MG Capsule Delayed Release 1 capsule Orally Once a day; Duration: 30 day(s) 03/26/2019 Active Atorvastatin Calcium 80 MG Tablet 1 tablet Orally Once a day; Duration: 30 day(s) Active Zofran 8 MG Tablet as directed Orally T wice a day/prn/nausea Active Vitamin D (Ergocalciferol) 56275 UNIT Capsule 1 capsule Orally once a week Active Renal 1 MG Capsule 1 capsule Orally Onc e a day; Duration: 30 day(s) Active Protonix 40 MG Tablet Delayed Release 1 tablet Orally Once a day as directed Active Simethicone 125 MG Tablet Chewable 1 tablet after meals and at bedtime as needed Orally Four times a day Active Renvela 800 MG Tablet 1 tablet with meal s Orally Three times a day; Duration: 30 day(s) Active Endocet 5-325 MG Tablet 1 tablet as need ed Orally every 6 hrs Active oxyCODONE-Acetaminophen 5-325 MG Tablet 1 tablet as needed Orally every 6 hrs Active Colace 100 MG Capsule 1 capsule as neede d Orally twice a day Active Silver sulfADIAZINE 1 % Cream 1 application to affected area Externally Once a day Active Colyte with Flavor Packs 240 GM Solution Reconstituted As directed Orally Over the specified time.; Duration: 1 day(s) 01/28/2019 Active Losartan Potassium 50 MG Tablet 1 tablet Orally Once a day; Duration: 30 day(s) Active HYDROcodone-Acetaminophen 2.5-325 MG Tablet 1 tablet as needed Orally TID/PRN Active Immunizations Vaccine Route Administration Date Status Comme nts Influenza Unknown 07/27/2018 Administered Social History Tobacco Use: Social History Observation Description Date Details (start date - stop date) Current Smoker NA - NA Social History Drugs/Alcohol: Social Info Question Answer Notes Alcohol Screen Did you have a drink containing alcohol in the past year? No Points 0 Interpretation Negative Tobacco Use: Social Info Question Answer Notes Tobacco Use/Smoking Patient is a current smoker When did you start smoking? sep 2018 How often do you smoke cigarettes? every day How many cigarettes a day do you smoke? 5 or less Additional Details Category Social Info Options Details Miscellaneous: Marital status: single Occupation: unemployed Problems Problem Type SNOMED Code ICD Code Onset Dates Problem Status W/U Status Risk Notes Problem Weight loss (078580947) Weight loss (R63.4) Active confirmed Problem Anemia (576315916) Anemia, unspecified type (D64.9) Active confirmed Plan Of Treatment Future Test Test Name Order Date UPPER GI ENDOSCOPY 01/28/2019 COLONOSCOPY 01/28/2019 Insurance Providers Payer Name Payer Address Payer Phone Subscriber Number Group Number Insured Name Patient Relationship to Insured Coverage Start Date Coverage End Date MEDICARE OF [place] [address] [place]SE [place]FR[place]L [id number] KENDY BANKS Self - patient is the insured MEDICAID OF [facility] [address] [place] [address] [id number] KENDY BANKS Self - patient is the insured Medical (General) History Medical History History ICD Code Chronic kidney disease Stage 5(severe)di alisis hypophosphatemia hypercholesterolemia anemia lactose intolerance irritable bowel syndrome depression stroke -2011 2 herinated disc left foot second toe infection Surgical History Surgery Date(Month/Year) hernia repair left eye fistula repair/graft colonoscopy, 04/18/14, normal, ten-year f george
[2025-10-11 14:50] LABS: Hematocrit 38.5 % (42.0-52.0); Hemoglobin 12.8 g/dl (14.0-18.0); Mean Corpuscular HGB Conc 33.2 g/dl (31.0-36.0); Mean Corpuscular Hemoglobin 30.8 pg (27.0-33.0); Mean Corpuscular Volume 92.5 fL (80.0-98.0); NRBC Abs Auto 0.000 X10*3/uL (0.0-0.012); NRBC Pct Auto 0.0 /100WBC (0.0-0.2); Platelet Count 224 X10*3/uL (160-400); Red Blood Count 4.16 X10*6/uL (4.60-5.80); White Blood Count 8.6 X10*3/uL (4.8-10.8)
[2025-10-11 15:59] LABS: Alanine Aminotransferase 9 U/L (0-40); Albumin Level 4.1 g/dL (3.5-5.0); Alkaline Phosphatase 68 U/L (39-117); Anion Gap 13 (12-20); Aspartate Amino Transferase 37 U/L (5-37); Blood Urea Nitrogen 42 mg/dL (9-16); Calcium 9.2 mg/dL (8.4-10.2); Carbon Dioxide 17 mmol/L (22-29); Chloride 117 mmol/L (96-108); Estimated Glomerular Filt Rate 40; Potassium 5.8 mmol/L (3.3-5.1); Sodium 141 mmol/L (135-145); Total Protein 6.8 g/dL (6.5-8.0)
[2025-10-11 16:19] LABS: Parathyroid Hormone Intact 106.8 pg/mL (8.7-77.1)
[2025-10-12 06:58] LABS: Tacrolimus Prograf 13.7 mcg/L
== END 2025-10-11 10:56 | disposition home or self-care (01) ==
LOC: HO.HKASLDS 10:55
PROVIDERS: PCP Internal Medicine; Visit Provider Internal Medicine Hypertension Specialist
DX: Z51.81 Encounter for therapeutic drug level monitoring (principal); M54.16 Radiculopathy, lumbar region; Z94.0 Kidney transplant status
CPT/HCPCS: 36415; 80053; 80197; 82570; 83970; 84100; 84156; 85027

== ENCOUNTER 2025-10-12 10:39 | Outpatient (AMB) | payer MEDICARE, MEDICAID, SELFPAY ==
[2025-10-12 10:43] VITALS: BP 130/62; PULSE 64; O2SAT 99; BMI 24.6
--- NOTE | 2025-10-12 10:43 | HO.NEPHOV ---
Vital Signs 10/12/25 10:43 Height 5 ft 3 in Weight 139 lb BMI 24.6 BP 130/62 Blood Pressure Location Rt brachial Position Sitting Pulse 64 Pulse Source Pulse Oximeter Pulse Oximetry (%) 99 Oxygen Delivery Method Room Air Intake Visit Reasons: Dec f/u w/labs Meeting Planner Required: No Accompanied by: Self / Same As Patient Allergies lactose Allergy (Unknown, Verified 10/12/25 10:47) Unknown Medication List - Last Reconciled 10/12/25 by Jason Goldstein MD acetaminophen 500 mg PO Q6H PRN amlodipine 10 mg PO DAILY amoxicillin 500 mg PO ONCE atorvastatin 10 mg PO DAILY cane As directed carvedilol 25 mg PO BID cinacalcet 30 mg PO DAILY empagliflozin (Jardiance) 10 mg PO QAM lidocaine 5% (Lidoderm) 1 patch topical DAILY PRN lisinopril 40 mg PO DAILY omeprazole 10 mg PO DAILY Shower Chair As directed sodium bicarbonate 1,300 mg (2 x 650 mg) PO BID sodium zirconium cyclosilicate (Lokelma) 10 grams PO DAILY tacrolimus XR (Envarsus XR) 0.75 mg PO DAILY tacrolimus XR (Envarsus XR) 2 mg (2 x 1 mg) PO DAILY HPI Comments Details: History of Present Illness The patient is a 60 year old male presenting for a follow-up visit for his kidney transplant. He has a history of a donor kidney transplant in 2020, for which he was on hemodialysis prior. His immunosuppressive regimen includes Campath induction and maintenance tacrolimus. The patient's medical history is significant for recurrent hyperkalemia requiring long-term Lokelma, although he admits to not taking it daily. He also reports a diet high in potatoes, contributing to a recent high potassium level of 5.8. He has secondary hyperparathyroidism, which has been improving, and chronic back pain. The patient has a history of a stroke, which has resulted in residual weakness and tingling in his left hand and legs. These symptoms are exacerbated by cold weather and limit his ability to walk for more than 10-15 minutes. He expressed concern about a change in the appearance of his tacrolimus capsule but was reassured after his recent tacrolimus level was found to be therapeutic at 13.7. He reports no difficulty with urination. Recent labs showed a slight increase in creatinine. 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 Mother No problems noted. Sister HTN (hypertension) CVD (cardiovascular disease) Myocardial infarction Cancer Maternal Grandmother Cancer Maternal Grandfather No problems noted. Paternal Grandfather Unknown family medical history Paternal Grandmother Unknown family medical history Sister No problems noted. Brother No problems noted. Brother Substance use disorder Son No problems noted. Daughter No problems noted. Social History Housing: Apartment Alcohol intake: never Patient Tobacco Use Status: Former Tobacco user Cigarettes Per Day: 3 Years Smoked: 12 years e-Cigarette/Vaping Use: Never Used service: No Current occupational status: retired and disabled Cognitive needs: No Hearing needs: No Vision needs: No Physical Exam Exam Exam: Physical Exam General: Awake. Comfortable. HENT: Neck supple. Mucosa moist. Pulmonary: Lungs aeration equal. No rales. Deep breath good. Cardiology: Heart S1-S2 heard. No gallop. Abdomen: Soft. Non tender. Bowel sounds normal. Neurologic: No involuntary movements. No myoclonus. Weakness in left hand due to stroke. Tingling in hand and legs, especially when cold. Extremities: No edema. No rash. Difficulty walking long distances. Vital Signs: Last Vital Signs Pulse 64 10/12/25 10:43 BP 130/62 10/12/25 10:43 Pulse Ox 99 10/12/25 10:43 Oxygen Delivery Method Room Air 10/12/25 10:43 BMI result Body Mass Index 24.6 Comfortable Neck supple no JVD. Lungs entry equal no rales. Heart S1-S2 heard no gallop or rub. Abdomen soft nontender. Neuro alert awake oriented. No asterixis. Extremities no edema. Results Reviewed Nephrology Results: Hgb, (14.0-18.0) 12.8 g/dl L 10/11/25 WBC, (4.8-10.8) 8.6 X10*3/uL 10/11/25 Plt Count, (160-400) 224 X10*3/uL 10/11/25 Sodium, (135-145) 141 mmol/L 10/11/25 Potassium, (3.3-5.1) 5.8 mmol/L H 10/11/25 Chloride, (96-108) 117 mmol/L H 10/11/25 Carbon Dioxide, (22-29) 17 mmol/L L 10/11/25 BUN, (9-16) 42 mg/dL H 10/11/25 Creatinine, (0.5-1.4) 1.73 mg/dL H 10/11/25 Calcium, (8.4-10.2) 9.2 mg/dL 10/11/25 Phosphorus, (2.7-4.5) 3.9 mg/dL 10/11/25 PTH Intact, (8.7-77.1) 106.8 pg/mL H 10/11/25 Urine Creatinine 97.21 mg/dL 10/11/25 Assessment & Plan Assessment & Plan (1) Renal transplant, status post: Comment: Transplant date 06/06/2021. Induction with Campath Maintain with tacrolimus. Baseline creatinine 1.5. Code(s): Z94.0 - Kidney transplant status Category: Surgical Plan: Renal fx stable Recheck today (2) Hypertension, essential: Code(s): I10 - Essential (primary) hypertension Category: Medical Plan: Blood pressure is better controlled Continue with current regimen Stay on low-sodium diet Monitor blood pressure closely. (3) Lumbar back pain with radiculopathy affecting left lower extremity: Code(s): M54.16 - Radiculopathy, lumbar region Category: Medical Plan Plan 1. Kidney Transplant Status - Continue all current medications, including tacrolimus. - Reassured the patient that his recent tacrolimus level of 13.7 is therapeutic, indicating he is taking the medication despite concerns about a change in pill appearance. 2. Elevated Creatinine - A recent lab result indicates a slight increase in creatinine levels. - The patient was advised to ensure adequate fluid intake. - A follow-up blood work is ordered in one month to recheck creatinine levels. 3. Hyperkalemia - Recent potassium level was high at 5.8, likely due to high dietary intake of potatoes and inconsistent use of Lokelma. - The patient was counseled to reduce his consumption of potatoes and continue his current medications. 4. Secondary Hyperparathyroidism - Parathyroid hormone level has improved to 106. - No changes in management were made at this time. 5. Follow-Up - The patient will return for blood work and a creatinine check in one month. - A full follow-up appointment is scheduled in three months. Orders: Orders Basic Metabolic Panel 1 Month I10 - Essential (primary) hypertension, Z94.0 - Kidney transplant status Coding Level of Care Code Est Pt Level 4 (17904) Diagnoses Renal transplant, status post Z94.0 Hypertension, essential I10 Lumbar back pain with radiculopathy affecting left lower extremity M54.16
--- OUTSIDE RECORDS SUMMARY | 2025-10-12 13:35 | XMS_ITS | Patient Health Record ---
Author Organization [facility] Address [address] [place] [phone] Care Team Providers Care Senior Tableau Developer Name Role Phone Heri BOSWELL, Asma Primary [...] wice a day/prn/nausea Active Vitamin D (Ergocalciferol) 04595 UNIT Capsule 1 capsule Orally once a [...] W/U Status Risk Notes Problem Weight loss (473138792) Weight loss (R63.4) Active confirmed Problem Anemia (591491383) Anemia, unspecified type (D64.9) Active confirmed Plan Of Treatment Future Test Test Name Order Date UPPER GI ENDOSCOPY 01/28/2019 COLONOSCOPY 01/28/2019 Insurance Providers Payer Name Payer Address Payer Phone Subscriber Number Group Number Insured Name Patient Relationship to Insured Coverage Start Date Coverage End Date MEDICARE OF [place] [address] [place]SE [place]FR[place] [id number] KENDY BANKS Self - patient is the insured MEDICAID OF [facility] [address] [place] [phone] [id number] KENDY BANKS Self - patient is the [...]
--- OUTSIDE RECORDS SUMMARY | 2025-10-12 13:35 | XMS_ITS | Clinical Summary ---
Author Organization [facility] Address [address] [place] [address] Care Team Providers Care Door Tender Name Role Phone Pcp, No Primary Care [...] age to complete this topic Insurance [address] [place] [id number] MEDICARE PART A & B Care Teams Door Tender Relationship Specialty Start Date End Date Pcp, No [address] [place] [address] PCP - General 01/21/22
== END 2025-10-12 11:01 | disposition home or self-care (01) ==
LOC: HO.HKAS 10:40
PROVIDERS: PCP Internal Medicine; Visit Provider Internal Medicine Hypertension Specialist
DX: Z94.0 Kidney transplant status (principal); I10 Essential (primary) hypertension; M54.16 Radiculopathy, lumbar region
CPT/HCPCS: 99214

== ENCOUNTER → 2025-10-12 10:39 | Outpatient (BNVA) | payer MEDICARE, MEDICAID, SELFPAY | PROVIDERS: PCP Internal Medicine; Visit Provider Internal Medicine Hypertension Specialist | DX: M54.16 Radiculopathy, lumbar region (principal); I10 Essential (primary) hypertension; Z94.0 Kidney transplant status | CPT/HCPCS: 99212 ==

== ENCOUNTER 2025-10-19 10:38 | Outpatient (AMB) | payer MEDICARE, MEDICAID, SELFPAY ==
--- OUTSIDE RECORDS SUMMARY | 2025-10-19 10:44 | XMS_ITS | Encounter Summary ---
Author Organization [facility] Address [address] [facility] [address] [place] [address] Phone Care Team Providers Care Service Vehicle Operator Name Role Phone Oumou Liriano MD Primary Care Provider [phone] Reason for Visit * Reason Onset Date Comments Med Refill 06/04/2021 Encounter Details Date Type Department Care Team (Late st Contact Info) Description 06/04/2021 Refill [facility] [address] [place] [address] Clarisa Fuentes, LESLIE [address] [facility] [address] [place] [address] Social History Tobacco Use Types [...] on filedocumented in this encounter Care Teams Service Vehicle Operator Relationship Specialty Start Date End Date Oumou Liriano MD [facility] [place] [address] PCP - General 08/31/19 documented as of this encounter
--- OUTSIDE RECORDS SUMMARY | 2025-10-19 10:44 | XMS_ITS | Clinical Summary ---
Author Organization [facility] Address [address] [place] [address] Care Team Providers Care Data Coordinator Name Role Phone Pcp, No Primary Care [...] age to complete this topic Insurance [address] [facility] [place] [id number] MEDICARE PART A & B Care Teams Data Coordinator Relationship Specialty Start Date End Date Pcp, No [address] [place] [address] PCP - General 01/21/22
--- OUTSIDE RECORDS SUMMARY | 2025-10-19 10:44 | XMS_ITS | Clinical Summary ---
Author Organization [facility] Address [address] [facility] [address] [place] [address] Phone Care Team Providers Care Renewals Representative Name Role Phone Oumou Liriano MD Primary Care Provider [phone] Allergies Active Allergy Reactions Criticality Noted Date [...] Blood, Stool #1 Negative Negative APS SPECTRA CRIMINALIST Comment:Performed by Guaiac Method. Occult Blood, Stool #2 Negative Negative APS SPECTRA CRIMINALIST Comment:Performed by Guaiac Method. Occult Blood, Stool #3 Negative Negative APS SPECTRA CRIMINALIST Comment:Performed by Guaiac Method. Collection Time 1,100 APS SPECTRA CRIMINALIST Panel Comments Specimen source: Occult Blood Card APS SPECTRA CRIMINALIST 01/13/2019 us Jamal Dinh MD LAB BODY FLUIDS AND STOOLS EITAN GARCIA Final Result APS SPECTRA CRIMINALIST from Last 3 Months or Most Recently Relevant to Health Maintenance [place] [id number] Care Teams Renewals Representative Relationship Specialty Start Date End Date Oumou Liriano MD [address] [place] [address] PCP - General 08/31/19
--- OUTSIDE RECORDS SUMMARY | 2025-10-19 10:44 | XMS_ITS | Patient Health Record ---
Author Organization [facility] Address [address] [place] [address] Care Team Providers Care Molding Utility Worker Name Role Phone Heri BOSWELL, Asma Primary [...] wice a day/prn/nausea Active Vitamin D (Ergocalciferol) 74972 UNIT Capsule 1 capsule Orally once a [...] W/U Status Risk Notes Problem Weight loss (247152127) Weight loss (R63.4) Active confirmed Problem Anemia (796868910) Anemia, unspecified type (D64.9) Active confirmed Plan Of Treatment Future Test Test Name Order Date UPPER GI ENDOSCOPY 01/28/2019 COLONOSCOPY 01/28/2019 Insurance Providers Payer Name Payer Address Payer Phone Subscriber Number Group Number Insured Name Patient Relationship to Insured Coverage Start Date Coverage End Date [place] [address] JOSE ALFR[place] [id number] KENDY BANKS Self - patient is the insured MEDICAID OF [facility] [address] [place] [phone] [id number] KENDY BANKS Self - patient is the [...]
[2025-10-19 10:45] VITALS: BP 124/70; PULSE 65; O2SAT 95; BMI 25.0
--- NOTE | 2025-10-19 10:45 | MHC.PC.OV ---
Vital Signs 10/19/25 10:45 Height 5 ft 3 in Weight 141 lb BMI 25.0 BP 124/70 Blood Pressure Location Rt brachial Position Sitting Pulse 65 Pulse Source Pulse Oximeter Pulse Oximetry (%) 95 Intake Visit Reasons: f/u, needs VNA referral Allergies lactose Allergy (Unknown, Verified 10/19/25 10:45) Unknown Medication List - Last Reconciled 10/19/25 by Oumou Liriano MD amlodipine 10 mg PO DAILY amoxicillin 500 mg PO ONCE atorvastatin 10 mg PO DAILY cane As directed carvedilol 25 mg PO BID cinacalcet 30 mg PO DAILY empagliflozin (Jardiance) 10 mg PO QAM lidocaine 5% (Lidoderm) 1 patch topical DAILY PRN lisinopril 40 mg PO DAILY omeprazole 10 mg PO DAILY Shower Chair As directed sodium bicarbonate 1,300 mg (2 x 650 mg) PO BID sodium zirconium cyclosilicate (Lokelma) 10 grams PO DAILY tacrolimus XR (Envarsus XR) 2 mg (2 x 1 mg) PO DAILY Tobacco use date assessed: 02/23/25 Dental Screening Dental Screen Date: 02/23/25 HPI HPI Comments History of Present Illness Details History of Present Illness The patient is a 60 year old male presenting with issues related to his VNA service, medication management, and resulting symptoms from medication non-adherence. Difficulty with Medication Management: - The patient relies on VNA services for medication management, as he reports being unable to prepare his own medication pillbox. - Recently, he experienced a lapse in care for over two weeks when his regular VNA nurse went on vacation and a replacement was not found - This lapse led to him missing medications, including Jardiance, causing him to feel sick with nausea, gas, and dizziness for about two weeks. - He reports frustration with the VNA service due to poor communication and unreliability. - The patient recently moved to [facility] - VNA services had previously been reduced from three times a week to once a week. - In addition to medication management, the VNA also monitors his blood pressure and provides wound care, as they did for a past gangrene on his toe. Kidney Transplant Status: - The patient is a kidney transplant recipient, and all his medications are managed through his nephrology team. Social History: - Housing: Lives with a landlord and recently moved to a new address in [place]. - Functional Status: Unable to work and receives disability. - Activities of Daily Living: Reports inability to prepare his own medications and difficulty with cooking, requiring him to sit down. - Support Systems: Receives VNA services for medication management and has a Commissary Officer (INTERFACE DESIGNER) for cooking and cleaning. 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 Mother No problems noted. Sister HTN (hypertension) CVD (cardiovascular disease) Myocardial infarction Cancer Maternal Grandmother Cancer Maternal Grandfather No problems noted. Paternal Grandfather Unknown family medical history Paternal Grandmother Unknown family medical history Sister No problems noted. Brother No problems noted. Brother Substance use disorder Son No problems noted. Daughter No problems noted. Social History Housing: Apartment Alcohol intake: never Patient Tobacco Use Status: Former Tobacco user Cigarettes Per Day: 3 Years Smoked: 12 years Packs per year/per ci.00 e-Cigarette/Vaping Use: Never Used service: No Current occupational status: retired and disabled Cognitive needs: No Hearing needs: No Vision needs: No Questionnaire Thrive Questionnaire Date Thrive assessed: 02/23/25 I am a: Patient What is your living situation today?: I have a steady place to live Within the past 12 months, did the food you bought not last and you didn't have the money to get more?: Sometimes True Within the past 12 months, did you worry whether your food would run out before you got money to buy more?: Often true Do you have trouble paying for medicines?: No Do you have trouble getting transportation to medical appointments?: No Do you have trouble paying your heating and electricity bill?: No Do you have trouble taking care of your child, family member or friend?: No Do you have trouble with day-to-day activities such as bathing, preparing meals, shopping, managing finances, etc.?: Yes Are you currently unemployed and looking for a job?: No Are you interested in more education?: Yes Currently or been in a relationship where the following occur: I choose not to answer THRIVE Score: 2 TEA-7 AMB Questionnaire TEA-7 Date TEA - 7 assessed: 02/23/25 Source: Developed by Drs. Jean-Paul Amato, Phuong Mckeon, Rafy Connell and colleagues, with an educational bobby from [employer]. Review of Systems Narrative Review of Systems - General: No fever no chills - Neurological: No headaches no dizziness - Ear nose throat: No sore throat no hearing difficulty no ear pain - Cardiovascular: No syncope, no chest pain, no palpitations - Gastrointestinal: No nausea vomiting or diarrhea Physical exam (Primary Care) Vital Signs: Last Vital Signs Pulse 65 10/19/25 10:45 BP 124/70 10/19/25 10:45 Pulse Ox 95 10/19/25 10:45 BMI result Body Mass Index 25.0 Tobacco/Smoking Status: Tobacco use Status Tobacco use date assessed 02/23/25 10/19/25 10:47 Patient Tobacco Use Status Former Tobacco user 10/19/25 10:47 Tobacco use type 04/23/24 14:54 e-Cigarette/Vaping Use Never Used 10/19/25 10:47 Thrive Assessment: Date of Thrive Assessment Date Thrive assessed 02/23/25 10/19/25 10:47 Currently or been in a relationship where the following occur: I choose not to answer Narrative Physical Exam General: No acute distress HEENT: No acute findings Neck: Supple Respiratory system: Able to talk in full sentences, no audible wheeze Cardiovascular: S1-S2 regular in rate and rhythm Extremities: No new findings CLIENT SUPPORT REPRESENTATIVE: Alert awake oriented x3 motor intact Skin: Normal turgor Coding Level of Care Code Est Pt Level 4 (07600) Diagnoses Difficulty managing medication Z78.9 Renal transplant, status post Z94.0 Hypertension, essential I10 Difficulty performing activity of daily living (ADL) Z78.9 Time Spent (min) 31 Comment most time spent face to face listening and answering questions Assessment & Plan Assessment & Plan (1) Difficulty managing medication: Code(s): Z78.9 - Other specified health status Category: Medical (2) Renal transplant, status post: Comment: Transplant date 06/06/2021. Induction with [facility] Maintain with tacrolimus. Baseline creatinine 1.5. Code(s): Z94.0 - Kidney transplant status Category: Surgical (3) Hypertension, essential: Code(s): I10 - Essential (primary) hypertension Category: Medical Plan: Blood pressure is better controlled Continue with current regimen Stay on low-sodium diet Monitor blood pressure closely. (4) Difficulty performing activity of daily living (ADL): Code(s): Z78.9 - Other specified health status Category: Medical Plan Problem List - Difficulty with medication management - Kidney transplant recipient Plan - The patient was advised to continue with his current VNA service, as switching to a new service could result in a loss of benefits - It was recommended that the patient discuss getting his medications bubble packed by the pharmacy with his rehabilitation director, to eliminate the need for VNA assistance with his pillbox. - He has a scheduled appointment in December with his rehabilitation director where he can address this. - In the interim, the patient will continue with the VNA
== END 2025-10-19 11:19 | disposition home or self-care (01) ==
LOC: HO.HMCC 10:38
PROVIDERS: PCP Internal Medicine; Visit Provider Internal Medicine
DX: Z78.9 Other specified health status (principal); Z94.0 Kidney transplant status; I10 Essential (primary) hypertension

== ENCOUNTER → 2025-10-19 10:38 | Outpatient (BNVA) | payer MEDICARE, MEDICAID, SELFPAY | PROVIDERS: PCP Internal Medicine; Visit Provider Internal Medicine | DX: Z71.89 Other specified counseling (principal); I10 Essential (primary) hypertension; Z78.9 Other specified health status; Z79.899 Other long term (current) drug therapy; Z94.0 Kidney transplant status | CPT/HCPCS: 99212 ==